=== PATIENT | female | born 1945 | race Caucasian/White ===

== ENCOUNTER → 2020-09-30 13:48 | Outpatient (CLI) | payer OTHER, SELFPAY ==
--- NOTE | ~2020-09-30 | MM_ITS ---
EXAMINATION: MM screening mario BI w betty HISTORY: Screening mammogram TECHNIQUE: Craniocaudal and mediolateral oblique 3-D tomosynthesis images were obtained and synthetic 2-D images were generated. CAD analysis was submitted and interpreted. COMPARISON: 01/31/2013, 08/23/2011 bilateral digital screening mammogram examinations BREAST PARENCHYMAL COMPOSITION: There are scattered areas of fibroglandular density. FINDINGS: There are scattered bilateral microcalcifications. There is no evidence of suspicious mass, calcification, or architectural distortion to suggest malignancy in either breast. There has been no suspicious interval change. IMPRESSION: 1. No mammographic evidence of malignancy. 2. Recommend routine screening mammography in one year. BI-RADS Category 2: Benign finding(s). Reviewed, dictated and finalized at location A.
== END ==
PROVIDERS: PCP Internal Medicine; Visit Provider Internal Medicine
DX: Z12.31 Encounter for screening mammogram for malignant neoplasm of breast (principal)
CPT/HCPCS: 77063; 77067

== ENCOUNTER → 2021-01-14 14:13 | Outpatient (CLI) | payer OTHER, SELFPAY ==
--- NOTE | ~2021-01-14 | XR_ITS ---
XR chest 2V DATE: 01/14/2021 15:01 INDICATION: Chronic obstructive pulmonary disease TECHNIQUE: PA and lateral views COMPARISON: 10/22/2017 AP and lateral chest FINDINGS: Heart size is within normal range. No hilar or mediastinal enlargement. Moderate bilateral pulmonary hyperinflation. No pulmonary infiltrate or consolidation, pleural effusion or pulmonary vascular congestion or pneumo thorax. Diffuse osteopenia. IMPRESSION: Bilateral hyperinflation consistent with clinical history of COPD No active cardiopulmonary disease Reviewed, dictated and finalized at location A.
== END ==
PROVIDERS: PCP Internal Medicine; Visit Provider Nurse Practitioner Family
DX: J44.9 Chronic obstructive pulmonary disease, unspecified (principal); R91.8 Other nonspecific abnormal finding of lung field
CPT/HCPCS: 71046

== ENCOUNTER 2021-04-16 12:44 | Outpatient (CLI) | payer OTHER, SELFPAY ==
--- NOTE | ~2021-04-16 | CT_ITS ---
EXAMINATION: CT lung screening DATE: 04/16/2021 13:12 INDICATION: HISTORY OF CIGARETTES SMOKING TECHNIQUE: Computed tomography (CT) of the chest was performed without intravenous contrast. Addition al 3D reconstructions utilizing coronal maximum intensity projection (MIP) were performed. Automated exposure control and iterative reconstruction technique were employed. The dose-length product was 29 8.24 mGy-cm. COMPARISON: None FINDINGS: There are a few small calcified nodules in the right middle lobe and lingula along with calcified rig ht hilar and mediastinal lymph nodes consistent with old granulomatous disease. No other suspicious p ulmonary nodules, pneumonia, pulmonary edema or pleural effusion. Heart size is normal. Minimal peric ardial effusion. Atherosclerotic coronary artery calcification and aortic valve calcification. Thorac ic aorta is normal in caliber. No pathologically enlarged thoracic lymphadenopathy. Diffuse hepatic s teatosis. A few hepatic and splenic calcific lesions consistent with old granulomatous disease. Moder ate to severe cervical and thoracic spondylosis. IMPRESSION: 1. Lung-RADS category 1: Negative. Continue annual screening with noncontrast low-dose chest CT in 12 months. Reviewed, dictated and finalized at location B. ATIONAL INTELLIGENCE ANALYST IMPRESSION: 1. Lung-RADS category 1: Negative. Continue annual screening with noncontrast l ow-dose chest CT in 12 months.
== END 2021-04-16 12:45 | disposition home or self-care (01) ==
LOC: ANHIMG 12:52
PROVIDERS: PCP Internal Medicine; Visit Provider Internal Medicine
DX: Z87.891 Personal history of nicotine dependence (principal)
CPT/HCPCS: 71271

== ENCOUNTER 2021-05-10 12:25 | Inpatient (IN) | payer OTHER, SELFPAY ==
--- NOTE | ~2021-05-10 | XR_ITS ---
XR chest 1V portable DATE: 05/12/2021 10:16 INDICATION: Chest pressure TECHNIQUE: Portable upright AP chest on May 12, 2021 at 1010 hours COMPARISON: 05/10/2021 portable AP chest at 1432 hours FINDINGS: Normal heart size. There is thoracic aortic calcification and unfolding. No hilar or medias tinal enlargement. Minimal focal infiltrate or atelectasis at the right mid to lower lung. The lungs otherwise appear cl ear. IMPRESSION: Minimal focal infiltrate or atelectasis in the right mid and lower lung; otherwise no act aysha disease Reviewed, dictated and finalized at location B. OR INFORMATION SECURITY ANALYST IMPRESSION: Minimal focal infiltrate or atelectasis in the right mid and lower lung; otherwise no active disease
--- NOTE | ~2021-05-10 | XR_ITS ---
EXAMINATION: XR hip LT min 3V w AP pelvis DATE: 05/10/2021 13:37 INDICATION: Chronic left hip pain. TECHNIQUE: An anteroposterior view of the pelvis and 3 views of left hip were obtained. COMPARISON: Left hip radiographs 08/14/2014 FINDINGS: There is lumbar dextroscoliosis and severe spondylosis. There is a total right hip arthropl asty in near-anatomic alignment. There is advanced left hip osteoarthritis with bone volume loss of f emoral head. IMPRESSION: 1. Worsened advanced left hip osteoarthritis. 2. Total right hip arthroplasty in near-anatomic alignment. Reviewed, dictated and finalized at location A. NCE OFFICER
--- NOTE | ~2021-05-10 | XR_ITS ---
EXAMINATION: XR surgery orthopedic DATE: 05/11/2021 15:56 INDICATION: Intraoperative evaluation during left total hip arthroplasty TECHNIQUE: 2 frontal views of the left hip were obtained. COMPARISON: None. FINDINGS: Intraoperative image during a left total hip arthroplasty demonstrate placement of an acetabular comp onent affixed with at least a single screw which appears in near anatomic alignment on the single jay ge provided. A femoral broach is in place on the initial image with the proximal tip centered over t he acetabular component. Subsequent image demonstrates replacement of the broach with a femoral compo nent. Alignment appears near-anatomic. Partially visualized is a contralateral right total hip arthro plasty. Portions of the pelvis are obscured by a bolster. No fractures in the visualized bones. IMPRESSION: 1. Expected appearance during a left total hip arthroplasty. Reviewed, dictated and finalized at location A. NE PLUMBER
--- NOTE | ~2021-05-10 | XR_ITS ---
XR chest 1V portable DATE: 05/10/2021 14:44 INDICATION: Preoperative evaluation. History of cigarette smoking. TECHNIQUE: Portable upright AP chest on 05/10/2021 at 1432 hours COMPARISON: 04/16/2021 CT lung screening 01/14/2021 2 view chest FINDINGS: Normal heart size. There is aortic calcification and mild unfolding. No hilar or mediastina l enlargement. No pulmonary infiltrate or consolidation, pleural effusion or pulmonary vascular congestion or pneumo thorax is detected. Mild diffuse osteopenia. IMPRESSION: No active cardiopulmonary disease Reviewed, dictated and finalized at location A. AND ALCOHOL TREATMENT SPECIALIST
[2021-05-10 12:34] VITALS: BP 138/98; PULSE 102; RESP 17; TEMP 36.2; O2SAT 98
--- NOTE | 2021-05-10 12:55 | ED.LOWEXIN ---
HPI - Extremity Injury (Lower) General Chief Complaint: Extremity Injury, Lower Stated Complaint: Left hip pain, getting replaced 05/27/21 Time Seen by Provider: 05/10/21 12:40 Source: patient Mode of arrival: ambulatory Limitations: clinical condition History of Present Illness HPI Narrative: Patient 75 years old white female had long history of chronic left hip pain scheduled for surgery by Dr. Palafox next month. Currently patient on anti-inflammatory medication and tramadol, over the last 7 days unable to sleep, unable to walk and take care of her because of the severity pain. Patient denies any recent trauma., Fever, chills, nausea, vomiting. Related Data Home Medications Medication Instructions Recorded Confirmed aspirin 81 mg tablet,delayed 81 mg PO DAILY 03/19/19 01/14/21 release atorvastatin 20 mg tablet 20 mg PO DAILY 03/19/19 01/14/21 cholecalciferol (vitamin D3) 25 1,000 unit PO DAILY 03/19/19 01/14/21 mcg (1,000 unit) capsule cyanocobalamin (vitamin B-12) 500 500 mcg PO DAILY 03/19/19 01/14/21 mcg tablet fluticasone propionate 50 1 spray NASAL DAILY 03/19/19 01/14/21 mcg/actuation nasal spray,suspension furosemide 40 mg tablet 40 mg PO QAM 03/19/19 01/14/21 lorazepam 0.5 mg tablet 0.5 mg PO DAILY PRN 03/19/19 01/14/21 multivitamin 1 tablet PO DAILY 03/19/19 01/14/21 omega-3 fatty acids 1,000 mg 1,000 mg PO DAILY 03/19/19 01/14/21 capsule zolpidem 10 mg tablet PO 03/19/19 01/14/21 brimonidine 0.15 % eye drops 1 drp EACH EYE Q8H 01/14/21 01/14/21 bupropion HCl 300 mg 24 hr tablet, 300 mg PO QAM 01/14/21 01/14/21 extended release diclofenac sodium 75 mg 75 mg PO BID 01/14/21 01/14/21 tablet,delayed release duloxetine 60 mg capsule,delayed 60 mg PO DAILY 01/14/21 01/14/21 release latanoprost 0.005 % eye drops, 1 drp EACH EYE DAILY 01/14/21 01/14/21 emulsion omeprazole 20 mg tablet,delayed 20 mg PO DAILY 01/14/21 01/14/21 release potassium chloride 20 mEq 10 meq PO DAILY tablet 01/14/21 01/14/21 tablet,extended release tramadol 50 mg tablet 50 mg PO Q6H PRN 01/14/21 01/14/21 Allergies Allergy/AdvReac Type Severity Reaction Status Date / Time nitrofurantoin Allergy Unknown unknown Verified 05/10/21 12:45 Penicillins Allergy Unknown unknown Verified 05/10/21 12:45 Review of Systems Review of Systems: CONSTITUTIONAL: Denies fever, chills, or sweats. EYES: Denies visual changes, redness, or discharge. ENT: Denies rhinorrhea, congestion, sore throat, or otalgia. CARDIOVASCULAR: Denies chest pain, palpitations, or edema. RESPIRATORY: Denies cough or dyspnea. GASTROINTESTINAL: Denies abdominal pain, nausea, vomiting, or diarrhea. GENITOURINARY: Denies dysuria or hematuria. SKIN: Denies rash or itching. MUSCULOSKELETAL: Left hip pain NEUROLOGIC: Denies headache, numbness, or weakness. PSYCHIATRIC: Denies anxiety or depression. [facility] Past Medical History Medical History Anxiety CHF (congestive heart failure), NYHA class I Glaucoma History of tobacco abuse Hyperlipidemia Obstructive sleep apnea (adult) (pediatric) Osteoarthritis Surgical History Surgical History History of throat surgery 2012 polyp History of tonsillectomy History of total hip arthroplasty 2016 [facility] Total knee replacement status 2018 [facility] Family History Family History Sibling Family history of multiple sclerosis, Onset Age: 49 Patient's sister is Father Hypertension Family history of transient ischemic attacks, Onset Age: 72 Acute myocardial infarction, Onset Age: 72 Patient's father is Mother Family history of lung cancer, Onset Age: 72 Patient's mother is Social History Social History Social Histor
[2021-05-10] MEDS: HYDROmorphone HCL INJ (*CRX) 1 MG/ML SYR IM (13:15)
[2021-05-10] MEDS: ONDANSETRON HCL ODT 4 MG TABLET PO (13:15)
[2021-05-10] MEDS: diazePAM (*CRX) 5 MG TABLET PO (13:15)
[2021-05-10 14:15] VITALS: BP 148/86; PULSE 98; RESP 16; O2SAT 97
--- NOTE | 2021-05-10 14:18 | ECG_ITS ---
Measurements Intervals [place] Rate: 91 P: 47 IN: 207 QRS: 28 QRSD: 99 T: 65 QT: 319 QTc: 393 Interpretive Statements SINUS RHYTHM WITH FIRST DEGREE AV BLOCK CANNOT RULE OUT SEPTAL INFARCT, AGE INDETERMINATE BASELINE ARTIFACT- I, III, AVL, AVF ABNORMAL ECG Electronically Signed On 05-10-2021 16:25:53 RESEARCH ANIMAL FACILITY SUPERVISOR by Charan Hummel D.O.
--- NOTE | 2021-05-10 14:25 | PM.IMHP ---
H&P: HPI History of Present Illness Date/Time: 05/10/21 14:25 this is a 75 year old female patient who has a history of severe osteoarthritis. The patient has been and severe discomfort to her left hip for at least last 7 days. She is unable to walk and take care of herself and her . The patient was scheduled for surgery next month by Dr. Palafox for that left hip. However she is unable to sleep at night and walk due to the discomfort. The patient has resorted to smoking marijuana to help with her discomfort. She states the marijuana is no longer helping her either. White count is 11.1. Creatinine 1.3. Hip and pelvis x-ray was read as worsened advanced left hip osteoarthritis. Total right hip arthroplasty in near anatomical alignment. Chest x-ray read as no acute cardiopulmonary disease. The patient was given Dilaudid, Valium, Zofran and morphine. Dr. Palafox was notified and the patient will be scheduled for surgery tomorrow. Patient is being admitted to inpatient services on the date of service 05/10/2021. Chief Complaint: Severe left hip pain Review of Systems Review of Systems: All systems reviewed & are unremarkable except as noted in HPI and below Constitutional: Constitutional: Reports as per HPI and Reports no additional constitutional complaints Eyes: Eyes: Reports as per HPI and Reports no additional eye complaints ENT: Reports system reviewed and no additional complaints, except as documented and Reports Normal hearing present Cardiovascular: Cardiovascular: Reports no additional cardiovascular complaints Respiratory: Respiratory: Reports no additional respiratory complaints and Reports no additional respiratory complaints Gastrointestinal: Gastrointestinal: Reports as per HPI and Reports no additional gastrointestinal complaints Musculoskeletal: Musculoskeletal: Reports no additional musculoskeletal complaints Integumentary/Breasts: Skin/Breast: Reports system reviewed and no additional complaints, except as docu and Reports as per HPI Neurologic: Reports system reviewed and no additional complaints, except as documented, Reports as per HPI and Reports Normal hearing present Psychiatric: Psychiatric: Reports no additional psychiatric complaints and Reports as per HPI Endocrine: Endocrine: Reports no additional endocrine complaints Hematologic/Lymphatic: Hematologic/Lymphatic: Reports no additional hematologic/lymphatic complaints Allergic/Immunologic: Allergic/Immunologic: Reports no additional allergic/immunologic complaints [facility] Past Medical History Medical History (Updated 05/10/21 @ 15:24 by Christal Toro NP) Anxiety CHF (congestive heart failure), NYHA class I Glaucoma History of tobacco abuse Hyperlipidemia Obstructive sleep apnea Obstructive sleep apnea (adult) (pediatric) Osteoarthritis Surgical History Surgical History History of throat surgery 2011 polyp History of tonsillectomy History of total hip arthroplasty 2016 [facility] Total knee replacement status 2018 [facility] Family History Family History Sibling Family history of multiple sclerosis, Onset Age: 49 Patient's sister is Father Hypertension Family history of transient ischemic attacks, Onset Age: 72 Acute myocardial infarction, Onset Age: 72 Patient's father is Mother Family history of lung cancer, Onset Age: 72 Patient's mother is Social History Social History (Updated 05/10/21 @ 15:21 by Christal Toro NP) Social History: the patient stated that she stopped smoking in 2014. She lives with her who has Parkinson's. She has One daughter. The daughter and are both poa. She is retired from customer service. She smokes marijuana at night to help her sleep and help with the pain. Occasional glass of wine.
[2021-05-10 14:56] LABS: Basophils Percent Auto 0.2 % (0.2-1.2); Eosinophils Absolute Auto 0.2 K/mm3 (0-0.3); Eosinophils Percent Auto 1.7 % (0-4.4); Hematocrit 38.5 % (37.0-47.0); Hemoglobin 12.6 g/dL (12.0-15.0); Immature Granulocyte Absolute 0.04 K/mm3 (0.00-0.031); Immature Granulocyte Percent A 0.4 % (0-0.5); Lymphocytes Absolute Auto 1.36 K/mm3 (0.9-3.2); Lymphocytes Percent Auto 12.2 % (18.3-44.2); Mean Corpuscular HGB Conc 32.7 g/dl (32-36); Mean Corpuscular Hemoglobin 28.9 pg (26-34); Mean Corpuscular Volume 88.3 fl (80-100); Mean Platelet Volume 8.6 fl (7.4-10.4); Monocytes Absolute Auto 1.1 K/mm3 (0.1-0.6); Monocytes Percent Auto 10.1 % (2.6-8.5); Neutrophils Absolute Auto 8.4 K/mm3 (1.3-6.7); Neutrophils Percent Auto 75.4 % (45.5-73.1); Platelet Count Result 445 k/mm3 (150-375); Red Blood Count 4.36 M/mm3 (4.2-5.4); Red Cell Distribution Width 14.8 % (11.5-14.5); White Blood Count 11.1 K/mm3 (4.5-10.0)
[2021-05-10 15:07] LABS: Alanine Aminotransferase 23 U/L (4-35); Albumin Level 4.3 g/dL (3.5-5.1); Alkaline Phosphatase 105 U/L (38-126); Anion Gap 8 mmol/L (8-16); Aspartate Amino Transferase 30 U/L (14-36); Bilirubin,Total 0.9 mg/dL (0.2-1.3); Blood Urea Nitrogen 28 mg/dL (7-17); Calcium 9.7 mg/dL (8.4-10.2); Carbon Dioxide 24 mmol/L (22-30); Chloride 102 mmol/L (98-107); Estimated CRCL calculation 35 ml/min; Estimated Glomerular Filt Rate 40; Glucose 100 mg/dL (65-110); Potassium 3.9 mmol/L (3.4-5.0); Sodium 134 mmol/L (137-145)
[2021-05-10 15:13] LABS: INR 1.1
[2021-05-10 15:14] LABS: Partial Thromboplastin Time 36.9 SECONDS (22.3-36.8)
[2021-05-10 16:00] LABS: SARS-CoV-2 RNA PCR Negative
[2021-05-10] MEDS: HYDROmorphone HCL INJ (*CRX) 1 MG/ML SYR 0.5 MG IV PUSH ×2 (17:45→21:44)
[2021-05-10 17:47] VITALS: BP 141/76; PULSE 101; RESP 17; O2SAT 98
[2021-05-10 18:12] VITALS: BMI 38.5
--- NOTE | 2021-05-10 18:36 | ADMGEN ---
This patient, Emma Cintron, was admitted to [facility] Surg Room 316-01 at 1800. Patient/family oriented to hospital policies and general routines including ID bracelet, bed and alarms, visiting hours, pain management, procedures, bathroom and other care routines, personal items, smoking policy, room service/diet, and visiting hours. Information on how to activate the Rapid Response Team has been discussed. Patient/Family are encouraged to report perceived risks to care and to ask questions if they do not understand what they are told or what they should do.
[2021-05-10 18:43] VITALS: BP 128/62; PULSE 96; RESP 18; TEMP 36.2; O2SAT 95
[2021-05-10 20:50] VITALS: PULSE 95; RESP 20; O2SAT 97
[2021-05-10 22:00] VITALS: BP 124/56; PULSE 95; RESP 20; TEMP 36.7; O2SAT 97
[2021-05-10] MEDS: LORazepam INJ (*CRX) 2 MG/ML VIAL 0.5 MG IV PUSH (22:20)
[2021-05-10] MEDS: traMADol HCL (*CRX) 50 MG TABLET PO (22:29)
[2021-05-11] VITALS (19 sets, daily range): BP systolic 118–167; BP diastolic 68–98; PULSE 92–110; RESP 16–20; TEMP 36–37.9; O2SAT 90–100
[2021-05-11] MEDS: SODIUM CHLORIDE 0.9% IV 1,000 ML 100 ML IV CONT (05:36)
[2021-05-11] MEDS: HYDROmorphone HCL INJ (*CRX) 1 MG/ML SYR 0.5 MG IV PUSH ×2 (05:39→12:33)
[2021-05-11 07:49] LABS: Basophils Percent Auto 0.5 % (0.2-1.2); Eosinophils Absolute Auto 0.3 K/mm3 (0-0.3); Eosinophils Percent Auto 3.7 % (0-4.4); Hematocrit 37.6 % (37.0-47.0); Hemoglobin 12.1 g/dL (12.0-15.0); Immature Granulocyte Absolute 0.04 K/mm3 (0.00-0.031); Immature Granulocyte Percent A 0.5 % (0-0.5); Lymphocytes Absolute Auto 1.39 K/mm3 (0.9-3.2); Lymphocytes Percent Auto 16.2 % (18.3-44.2); Mean Corpuscular HGB Conc 32.2 g/dl (32-36); Mean Corpuscular Hemoglobin 28.7 pg (26-34); Mean Corpuscular Volume 89.1 fl (80-100); Mean Platelet Volume 8.8 fl (7.4-10.4); Monocytes Absolute Auto 0.9 K/mm3 (0.1-0.6); Monocytes Percent Auto 10.7 % (2.6-8.5); Neutrophils Absolute Auto 5.9 K/mm3 (1.3-6.7); Neutrophils Percent Auto 68.4 % (45.5-73.1); Platelet Count Result 440 k/mm3 (150-375); Red Blood Count 4.22 M/mm3 (4.2-5.4); Red Cell Distribution Width 14.9 % (11.5-14.5); White Blood Count 8.6 K/mm3 (4.5-10.0)
[2021-05-11 08:03] LABS: Alanine Aminotransferase 22 U/L (4-35); Alkaline Phosphatase 101 U/L (38-126); Anion Gap 4 mmol/L (8-16); Aspartate Amino Transferase 30 U/L (14-36); Bilirubin,Total 0.7 mg/dL (0.2-1.3); Blood Urea Nitrogen 24 mg/dL (7-17); Calcium 9.5 mg/dL (8.4-10.2); Carbon Dioxide 29 mmol/L (22-30); Chloride 105 mmol/L (98-107); Estimated CRCL calculation 44 ml/min; Estimated Glomerular Filt Rate 44; Glucose 113 mg/dL (65-110); Lactate Dehydrogenase 431 U/L (313-618); Sodium 138 mmol/L (137-145)
--- NOTE | 2021-05-11 08:29 | PM.IMHP ---
H&P: HPI History of Present Illness Date/Time: 05/11/21 08:29 Patient is a 75-year-old female who presents with a chronic ongoing history of left hip pain. She has had previous right total hip arthroplasty and now has similar symptoms on the left getting much worse with time. 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 She is in quite significant pain unable to ambulate or bear much weight on the left hip. Patient went to the emergency room because of significant pain she was having she was scheduled to have a total hip arthroplasty in a couple of weeks but this has been moved up due to the significant advancement of the collapse of the femoral head in the pain that she has an. She denies any new trauma or injury. No signs or symptoms of infection or other complaints. She comes in for left total hip arthroplasty as described above. Chief Complaint: Left hip pain due to severe primary osteoarthritis left hip joint and AVN with mild collapse of the femoral head. Review of Systems Review of Systems: All systems reviewed & are unremarkable except as noted in HPI and below PMFSH Past Medical History Medical History Acute and chronic respiratory failure Allergic rhinitis Anxiety CHF (congestive heart failure), NYHA class I Chronic obstructive pulmonary disease, unspecified Glaucoma History of tobacco abuse Hyperlipidemia Obesity Obstructive sleep apnea Obstructive sleep apnea (adult) (pediatric) Osteoarthritis Osteoarthritis of left hip Surgical History Surgical History History of throat surgery 2011 polyp History of tonsillectomy [facility] Total knee replacement status 2018 [facility] Family History Family History Sibling Family history of multiple sclerosis, Onset Age: 49 Patient's sister is Father Hypertension Family history of transient ischemic attacks, Onset Age: 72 Acute myocardial infarction, Onset Age: 72 Patient's father is Mother Family history of lung cancer, Onset Age: 72 Patient's mother is Social History Social History Social History: the patient stated that she stopped smoking in 2014. She lives with her who has Parkinson's. She has One daughter. The daughter and are both poa. She is retired from customer service. She smokes marijuana at night to help her sleep and help with the pain. Occasional glass of wine. Code status full code Smoking status: Former smoker Additional smoking assessment comments: pt confirms to smoking marijuana daily Alcohol intake: current Substance use type: marijuana Spiritual care concerns: No Meds Home Medications and Allergies Home Medications Medication Instructions Recorded Confirmed Type aspirin 81 mg tablet,delayed 81 mg PO DAILY 03/19/19 05/10/21 History release atorvastatin 20 mg tablet 20 mg PO DAILY 03/19/19 05/10/21 History cholecalciferol (vitamin D3) 25 1,000 unit PO DAILY 03/19/19 05/10/21 History mcg (1,000 unit) capsule cyanocobalamin (vitamin B-12) 500 500 mcg PO DAILY 03/19/19 05/10/21 History mcg tablet fluticasone propionate 50 1 spray NASAL DAILY 03/19/19 05/10/21 History mcg/actuation nasal spray,suspension furosemide 40 mg tablet 40 mg PO QAM 03/19/19 05/10/21 History lorazepam 0.5 mg tablet 0.5 mg PO DAILY PRN 03/19/19 05/10/21 History multivitamin 1 tablet PO DAILY 03/19/19 05/10/21 History omega-3 fatty acids 1,000 mg 1,000 mg PO DAILY 03/19/19 05/10/21 History capsule zolpidem 10 mg tablet 10 mg PO
[2021-05-11] MEDS: LATANOPROST 0.005% OP SOLN 2.5 ML BTL 1 DROP EACH EYE (09:57)
--- NOTE | 2021-05-11 13:12 | WPDANESEPPF ---
Anes - Initial Pre Proc Eval Procedure: Operation Date: 05/11/21 14:00 Proposed Procedures p Left Total Hip Arthroplasty - Sebastián Palafox MD Date/Time: 05/11/21 13:12 Surgeon: Yris Higginbotham PA-C Pre Op Diagnosis: Advanced L Hip Arthritis, Hip Replacement Patient Data Age: 75 Gender: F Height: 1.65 m Weight: 105.1 kg Last Vital Signs Temp 36.5 C 05/11/21 09:49 Pulse 96 05/11/21 09:49 Resp 20 05/11/21 09:49 BP 122/69 05/11/21 09:49 Pulse Ox 97 05/11/21 09:49 Allergies Allergy/AdvReac Type Severity Reaction Status Date / Time nitrofurantoin Allergy Unknown unknown Verified 05/11/21 13:10 Penicillins Allergy Unknown unknown Verified 05/11/21 13:10 Home Medications Medication Instructions Recorded Confirmed Type aspirin 81 mg tablet,delayed 81 mg PO DAILY 03/19/19 05/10/21 History release atorvastatin 20 mg tablet 20 mg PO DAILY 03/19/19 05/10/21 History cholecalciferol (vitamin D3) 25 1,000 unit PO DAILY 03/19/19 05/10/21 History mcg (1,000 unit) capsule cyanocobalamin (vitamin B-12) 500 500 mcg PO DAILY 03/19/19 05/10/21 History mcg tablet fluticasone propionate 50 1 spray NASAL DAILY 03/19/19 05/10/21 History mcg/actuation nasal spray,suspension furosemide 40 mg tablet 40 mg PO QAM 03/19/19 05/10/21 History lorazepam 0.5 mg tablet 0.5 mg PO DAILY PRN 03/19/19 05/10/21 History multivitamin 1 tablet PO DAILY 03/19/19 05/10/21 History omega-3 fatty acids 1,000 mg 1,000 mg PO DAILY 03/19/19 05/10/21 History capsule zolpidem 10 mg tablet 10 mg PO PRN PRN 03/19/19 05/10/21 History albuterol sulfate 90 mcg/actuation 1 - 2 inh INHALATION Q4-6H PRN 01/14/21 05/10/21 Rx aerosol inhaler #8.5 g brimonidine 0.15 % eye drops 1 drp EACH EYE Q8H 01/14/21 05/10/21 History bupropion HCl 300 mg 24 hr tablet, 300 mg PO QAM 01/14/21 05/10/21 History extended release diclofenac sodium 75 mg 75 mg PO BID 01/14/21 05/10/21 History tablet,delayed release duloxetine 60 mg capsule,delayed 60 mg PO DAILY 01/14/21 05/10/21 History release latanoprost 0.005 % eye drops, 1 drp EACH EYE DAILY 01/14/21 05/10/21 History emulsion omeprazole 20 mg tablet,delayed 20 mg PO DAILY 01/14/21 05/10/21 History release potassium chloride 20 mEq 10 meq PO DAILY tablet 01/14/21 05/10/21 History tablet,extended release tramadol 50 mg tablet 50 mg PO Q6H PRN 01/14/21 05/10/21 History Laboratory Tests 05/10/21 05/10/21 05/10/21 14:49 14:49 14:49 WBC 11.1 K/mm3 H K/mm3 (4.5-10.0) RBC 4.36 M/mm3 M/mm3 (4.2-5.4) Hgb 12.6 g/dL g/dL (12.0-15.0) Hct 38.5 % % (37.0-47.0) MCV 88.3 fl fl (80-100) MCH 28.9 pg pg (26-34) MCHC 32.7 g/dl g/dl (32-36) RDW 14.8 % H % (11.5-14.5) Plt Count 445 k/mm3 H k/mm3 (150-375) MPV 8.6 fl fl (7.4-10.4) Immature Gran % (Auto) 0.4 % % (0-0.5) Neut % (Auto) 75.4 % H % (45.5-73.1) Lymph % (Auto) 12.2 % L % (18.3-44.2) Summers % (Auto) 10.1 % H % (2.6-8.5) Eos % (Auto) 1.7 % % (0-4.4) Baso % (Auto) 0.2 % % (0.2-1.2) Lymph # (Auto) 1.36 K/mm3 K/mm3 (0.9-3.2) Summers # (Auto) 1.1 K/mm3 H K/mm3 (0.1-0.6) Eos # (Auto) 0.2 K/mm3 K/mm3 (0-0.3) Baso # (Auto) 0.0 K/mm3 K/mm3 (0.0-0.1) Abs Immat Gran (auto) 0.04 K/mm3 H K/mm3 (0.00-0.031) Absolute Neuts (auto) 8.4 K/mm3 H K/mm3 (1.3-6.7) Absolute Nucleated RBC 0.0 K/mm3 K/mm3 (0.0-0.012) Nucleated RBC % 0.0 % % (0.0-0.2) PT 14.0 Seconds Seconds (11.1-14.7) INR 1.1 APTT 36.9 SECONDS H SECONDS (22.3-36.8) Sodium 134 mmol/L L mmol/L (137-145) Potassium 3.9 mmol/L mmol/L (3.4-5.0) Chloride 102 mmol/L mmol/L (98-107) Carbon Dioxide 24 mmol/L mmol/L (22-30)
[2021-05-11] MEDS: LACTATED RINGERS 1,000 ML 30 ML IV CONT ×2 (13:27→16:28)
--- NOTE | 2021-05-11 14:04 | WPDHPUPDATE1 ---
History and Physical Update Update Date/Time: 05/11/21 14:04 History and Physical has been reviewed, including an updated exam of the patient. There are NO changes in the patient's condition. Risks, benefits, and alternatives have been discussed and questions answered. Patient agrees to proceed with procedure.
[2021-05-11] MEDS: HYDROmorphone HCL INJ (*CRX) 1 MG/ML SYR IV PUSH (14:11)
[2021-05-11] MEDS: TRANEXAMIC ACID 1,000MG/ISO100 1,000 MG/100 ML BAG 200 MG IVPB (14:12)
[2021-05-11] MEDS: ceFAZolin 2 GM/D5W 50 ML 2 GM/50 ML BAG IVPB (14:27)
--- NOTE | 2021-05-11 15:04 | PM.IMPN ---
Progress Note: A&P Assessment and Plan (1) Osteoarthritis of left hip: Qualifiers: Osteoarthritis type: unspecified Qualified Code(s): M16.12 - Unilateral primary osteoarthritis, left hip Code(s): M16.12 - Unilateral primary osteoarthritis, left hip Status: Acute Assessment and Plan: Presented with worsening left hip pain Hip x-ray shows worsened advanced left hip osteoarthritis. 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 Analgesics available as needed She will need PT/OT postoperatively Weight-bearing and DVT prophylaxis per Orthopedic surgery (2) Chronic obstructive pulmonary disease, unspecified: Qualifiers: COPD type: unspecified COPD Qualified Code(s): J44.9 - Chronic obstructive pulmonary disease, unspecified Code(s): J44.9 - Chronic obstructive pulmonary disease, unspecified Status: Acute Assessment and Plan: Not in acute exacerbation Continue home inhalers (3) CHF (congestive heart failure), NYHA class I: Code(s): I50.9 - Heart failure, unspecified Status: Chronic Assessment and Plan: Clinically compensated at this time Last echocardiogram showed grade 1 diastolic dysfunction with EF 60% Monitor volume status Continue furosemide 40 mg daily (4) Anxiety: Code(s): F41.9 - Anxiety disorder, unspecified Status: Chronic Assessment and Plan: No acute issues at this time Continue duloxetine and bupropion (5) Obstructive sleep apnea: Code(s): G47.33 - Obstructive sleep apnea (adult) (pediatric) Status: Chronic Assessment and Plan: Continue CPAP titrated to home settings (6) Acute kidney injury: Code(s): N17.9 - Acute kidney failure, unspecified Status: Acute Assessment and Plan: Creatinine elevated at 1.3 on presentation No prior labs to establish baseline Creatinine down to 1.2 today She has been rehydrated with IV fluids Continue to monitor renal function Consider renal ultrasound if no improvement Subjective Date/time seen: 05/11/21 15:04 Interval history: Date of service: 05/11/2021 Emma Cintron is a 75-year-old female with a history of CHF, COPD, JASON, and severe osteoarthritis of left hip who is seen in follow-up for left hip pain. She was scheduled to undergo elective hip replacement on 05/25/2021 but her pain became much more severe and she went to the emergency department due to code controlled left hip pain. She is now scheduled for left hip replacement this afternoon. At this time, she rates her lips hip pain is 8/10. She states the pain starts in her left hip and she feels in her knee, her ankle, and heel of her foot. She also complains of dry mouth she has been NPO. Reports about of diarrhea on Tuesday night after taking laxatives. No bowel movements since then. No urinary symptoms. Denies abdominal pain, nausea, or vomiting. No shortness of breath, cough, or chest pain. She cannot find a comfortable spot to lay in bed. Review of Systems Review of Systems: All systems reviewed & are unremarkable except as noted in HPI and below Exam Narrative: Ms. Cintron is an obese, well-appearing 75-year-old female who is lying supine in bed. She appears comfortable and is in NARD. Neuro: awake, alert and oriented x4, speech clear, no focal neuro deficits noted HEENMT: normocephalic, atraumatic, EOMI, sclerae anicteric Neck: supple, no lymphadenopathy Respiratory: clear to auscultation bilaterally, nonlabored breathing Cardio: regular rate, regular rhythm with S1-S2 Abdomen: nondistended, normoactive bowel sounds, soft, nontender to palpation Extremities: no edema or erythema, left hip tender to palpation, DP pulses 2+ bilaterally, able to wiggle toes bilaterally Skin:
--- NOTE | 2021-05-11 15:48 | P.OP_ITS ---
Procedure Note - Detailed Date of Procedure 05/11/21 Pre-op Diagnosis Advanced L Hip Arthritis, Hip Replacement Post-op Diagnosis same Procedure Performed [Left] total hip arthroplasty Surgeon Sebastián Palafox MD Manager Training Khoi Verdugo Anesthesia general Description of Procedure Patient was brought to the operating room and anesthetic was administered. The patient was placed with the [side] up and steriley prepped and draped in the usual manner. Longitudinal incision was done, dissection carried down to the fascia. A Hardinge type approach was used and the femoral head was dislocated anteriorly. Femoral head was removed a finger breath above the lesser trochanter. The acetabulum was serially reamed to accept a [52] component. This was impacted into place and secured with 2 25mm screws. A high wall liner was placed. The femur was reamed and broached to accept a [9] component which was impacted into place. A plus [-3] ball and neck were placed and the hip was put through full range of motion. The hip was noted to be stable. The wounds were then closed in a layer fashion using #5 ethibond, 2 vicryl, 2-0 vicryl and donta. Patient left the operating room in satisfactory condition. Estimated Blood Loss 600 Urine Output 0 Drains No Packing No Pathology none sent Complications No immediate complications Condition stable Disposition PACU
[2021-05-11] MEDS: fentaNYL CITRATE INJ (*CRX) 100 MCG/2 ML VIAL 25 MCG IV PUSH ×2 (17:13→17:24)
[2021-05-11 17:17] LABS: Hematocrit 37.8 % (37.0-47.0)
[2021-05-11] MEDS: DICLOFENAC SOD 75 MG TABLET.EC PO (18:22)
[2021-05-11] MEDS: SENNA/DOCUSATE SODIUM TABLET 2 TAB PO (18:22)
[2021-05-11] MEDS: BRIMONIDINE TARTRATE 0.15% 5 ML OPHTH SOLN 1 DROP EACH EYE (21:22)
[2021-05-11] MEDS: HYDROcodone/acetaminophen (*CRX) 7.5-325 MG TABLET 2 TAB PO (21:23)
[2021-05-12] VITALS (10 sets, daily range): BP systolic 123–140; BP diastolic 66–86; PULSE 86–102; RESP 16–22; TEMP 36.8–37.5; O2SAT 92–96
[2021-05-12] MEDS: BRIMONIDINE TARTRATE 0.15% 5 ML OPHTH SOLN 1 DROP EACH EYE ×3 (05:36→21:48)
[2021-05-12 06:59] LABS: Basophils Percent Auto 0.1 % (0.2-1.2); Hematocrit 37.1 % (37.0-47.0); Hemoglobin 11.4 g/dL (12.0-15.0); Immature Granulocyte Absolute 0.09 K/mm3 (0.00-0.031); Immature Granulocyte Percent A 0.6 % (0-0.5); Lymphocytes Absolute Auto 0.82 K/mm3 (0.9-3.2); Lymphocytes Percent Auto 5.3 % (18.3-44.2); Mean Corpuscular HGB Conc 30.7 g/dl (32-36); Mean Corpuscular Hemoglobin 29.5 pg (26-34); Mean Corpuscular Volume 96.1 fl (80-100); Mean Platelet Volume 9.1 fl (7.4-10.4); Monocytes Absolute Auto 0.7 K/mm3 (0.1-0.6); Monocytes Percent Auto 4.8 % (2.6-8.5); Neutrophils Absolute Auto 13.9 K/mm3 (1.3-6.7); Neutrophils Percent Auto 89.2 % (45.5-73.1); Platelet Count Result 437 k/mm3 (150-375); Red Blood Count 3.86 M/mm3 (4.2-5.4); White Blood Count 15.6 K/mm3 (4.5-10.0)
[2021-05-12 07:03] LABS: Anion Gap 4 mmol/L (8-16); Blood Urea Nitrogen 16 mg/dL (7-17); Carbon Dioxide 27 mmol/L (22-30); Chloride 103 mmol/L (98-107); Estimated CRCL calculation 52 ml/min; Estimated Glomerular Filt Rate 54; Glucose 158 mg/dL (65-110); Potassium 4.3 mmol/L (3.4-5.0); Sodium 134 mmol/L (137-145)
[2021-05-12] MEDS: DICLOFENAC SOD 75 MG TABLET.EC PO ×2 (08:51→16:58)
[2021-05-12] MEDS: ATORVASTATIN 20 MG TABLET PO (08:51)
[2021-05-12] MEDS: buPROPion HCL XL (24 HR) 150 MG TABCR 300 MG PO (08:51)
[2021-05-12] MEDS: ASPIRIN 81 MG ENTERIC TABLET PO (08:51)
[2021-05-12] MEDS: polyethylene glycoL 3350 17 GM POWD.PACK PO (08:52)
[2021-05-12] MEDS: DULoxetine HCL 60 MG CAPSULE.DR PO (08:52)
[2021-05-12] MEDS: POTASSIUM CHLORIDE 10 MEQ TABLET PO (08:52)
[2021-05-12] MEDS: FUROSEMIDE 40 MG TABLET PO (08:52)
[2021-05-12] MEDS: SENNA/DOCUSATE SODIUM TABLET 2 TAB PO ×2 (08:52→16:58)
[2021-05-12] MEDS: FLUTICASONE PROPIONATE 0.05% NA SPR 16 GM BTL (*BKC) 1 SPRAY NASAL (08:52)
[2021-05-12] MEDS: LATANOPROST 0.005% OP SOLN 2.5 ML BTL 1 DROP EACH EYE (08:53)
--- NOTE | 2021-05-12 09:50 | ECG_ITS ---
Measurements Intervals [place] Rate: 102 P: 25 ND: 185 QRS: 34 QRSD: 103 T: 63 QT: 316 QTc: 412 Interpretive Statements SINUS TACHYCARDIA BASELINE ARTIFACT- I, II, III, AVR, AVL, AVF, V1-V6 BORDERLINE ECG Electronically Signed On 05-12-2021 10:15:10 [employer]INE [employer] by Charan Hummel D.O.
[2021-05-12] MEDS: HYDROcodone/acetaminophen (*CRX) 7.5-325 MG TABLET 2 TAB PO (10:26)
--- NOTE | 2021-05-12 11:27 | PM.PNORT ---
Progress Note: A&P Additional Plan Will continue to monitor the patient postoperatively. Patient had some chest discomfort and shortness of breath when she got up to the chair earlier today test results pending to rule out cardiac issue. Otherwise looks good from orthopedic standpoint will work on pain control issues and encouraged patient to be up in physical therapy as tolerated. Orthopedics will follow. Anticipate discharge 1-2 days. Time Spent With Patient Time with patient: less than 15 minutes Subjective Subjective Date/Time Seen: 05/12/21 11:27 Patient is stable postop day 1 status post left total hip arthroplasty. Having some pain control issues going very slowly in physical therapy will need to stay another night. Had some chest discomfort when she got up into the chair earlier today. Cardiac enzymes are pending chest x-ray and EKG results are also pending. Patient appears comfortable now. No other complaints. Review of Systems Review of Systems: All systems reviewed & are unremarkable except as noted in HPI and below Exam Narrative: Vital signs are stable patient is afebrile neurovascular she is intact wound is clean and dry calves are benign. Going slowly in physical therapy due to pain postoperative in nature. Objective Data Vital Signs Vital Signs: Vital Signs - 24 hr 05/11/21 13:50 05/11/21 16:28 05/11/21 16:40 Temperature 36.7 C 36.0 C L Pulse Rate 92 97 99 Respiratory Rate 16 18 16 Blood Pressure 134/79 167/78 H 158/79 H Pulse Oximetry 94 95 96 05/11/21 16:55 05/11/21 17:10 05/11/21 17:18 Temperature Pulse Rate 102 H 107 H Respiratory Rate 16 18 Blood Pressure 154/81 H 143/86 H Pulse Oximetry 98 95 96 05/11/21 17:25 05/11/21 17:40 05/11/21 18:00 Temperature 36.2 C L Pulse Rate 106 H 109 H 110 H Respiratory Rate 16 16 16 Blood Pressure 157/94 H 150/84 H 143/80 H Pulse Oximetry 95 94 93 05/11/21 18:04 05/11/21 18:34 05/11/21 18:59 Temperature 36.9 C 36.1 C L Pulse Rate 108 H 103 H Respiratory Rate 16 16 Blood Pressure 118/68 138/77 Pulse Oximetry 90 90 90 05/11/21 19:34 05/11/21 20:00 05/11/21 23:34 Temperature 37.9 C H 37.2 C Pulse Rate 102 H 100 93 Respiratory Rate 16 16 16 Blood Pressure 143/98 H 121/69 Pulse Oximetry 100 93 94 05/12/21 00:47 05/12/21 02:55 05/12/21 03:34 Temperature 37.5 C Pulse Rate 100 Respiratory Rate 20 22 H 16 Blood Pressure 140/69 Pulse Oximetry 93 05/12/21 07:34 Temperature 37.2 C Pulse Rate 86 Respiratory Rate 18 Blood Pressure 140/86 Pulse Oximetry 96 Intake/Output Intake/Output: Intake & Output 05/09/21 05/10/21 05/11/21 05/12/21 23:59 23:59 23:59 23:59 Intake Total 1550 990 Output Total 1310 850 Balance 240 140 Meds/Results Medications: Active Medications Generic Name Dose Route Start Last Admin Trade Name Freq PRN Reason Stop Dose Admin Hydrocodone Bitart/Acetaminophen 1 tab 05/11/21 17:49 Hydrocodone/Acetaminophen (*Crx) 5-325 Mg Tablet PO Q3H PRN Pain Rated 4-6 Hydrocodone Bitart/Acetaminophen 2 tab 05/11/21 17:49 05/12/21 10:26 Hydrocodone/Acetaminophen (*Crx) 7.5-325 Mg Tablet PO 2 tab Q6H PRN Administration Pain Rated 7-10 Albuterol 1 - 2 puff 05/11/21 17:49 Albuterol Sulfate (*Sp) Aerosol 1 Puff INHALATION Q4-6H PRN shortness of breath or wheezing Aspirin 81 mg 05/11/21 09:00 05/12/21 08:51 Aspirin 81 Mg Enteric Tablet PO 81 mg DAILY BRANNON Administration Atorvastatin Calcium 20 mg 05/11/21 09:00 05/12/21 08:51 Atorvastatin 20 Mg Tablet PO 20 mg DAILY BRANNON Administration Brimonidine Tartrate 1 drop 05/10/21 22:05 05/12/21 05:36 Brimonidine Tartrate 0.15% 5 Ml Ophth Soln EACH EYE 1 drop Q8HR BRANNON Administration Bupropion HCl 300 mg 05/11/21 09:00 05/12/21 08:51 Bupropion Hcl Xl (24 Hr) 150 Mg Tabcr PO 300 mg QAM BRANNON Administration Celecoxib 200 mg 05/12/21 09:00 Celecoxib 20
[2021-05-12 11:28] LABS: Troponin I 0.014 ng/mL (0.000-0.034)
[2021-05-12] MEDS: LORazepam (*CRX) 0.5 MG TABLET PO ×2 (12:27→21:48)
[2021-05-12] MEDS: HYDROcodone/acetaminophen (*CRX) 5-325 MG TABLET 1 TAB PO (15:08)
--- NOTE | 2021-05-12 16:43 | P.PNIM_ITS ---
Progress Note: A&P Assessment and Plan (1) Osteoarthritis of left hip: Qualifiers: Osteoarthritis type: unspecified Qualified Code(s): M16.12 - Unilateral primary osteoarthritis, left hip Code(s): M16.12 - Unilateral primary osteoarthritis, left hip Status: Acute Assessment and Plan: Presented with worsening left hip pain * Hip x-ray shows worsened advanced left hip osteoarthritis. 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 Analgesics available as needed * Continue PT/OT * Weight-bearing and DVT prophylaxis per Orthopedic surgery (2) Chronic obstructive pulmonary disease, unspecified: Qualifiers: COPD type: unspecified COPD Qualified Code(s): J44.9 - Chronic obstructive pulmonary disease, unspecified Code(s): J44.9 - Chronic obstructive pulmonary disease, unspecified Status: Acute Assessment and Plan: Not in acute exacerbation * Continue home inhalers (3) CHF (congestive heart failure), NYHA class I: Code(s): I50.9 - Heart failure, unspecified Status: Chronic Assessment and Plan: Clinically compensated at this time * Last echocardiogram showed grade 1 diastolic dysfunction with EF 60% * Monitor volume status * Continue furosemide 40 mg daily (4) Anxiety: Code(s): F41.9 - Anxiety disorder, unspecified Status: Chronic Assessment and Plan: She is feeling more anxious * Continue duloxetine and bupropion * Lorazepam 0.5 mg q.6 hours p.r.n. (5) Obstructive sleep apnea: Code(s): G47.33 - Obstructive sleep apnea (adult) (pediatric) Status: Chronic Assessment and Plan: Patient refuses CPAP again tonight, stating it made her feel to dry * Reports that she has gone nights without her CPAP with no issues * She will resume CPAP on discharge home (6) Acute kidney injury: Code(s): N17.9 - Acute kidney failure, unspecified Status: Acute Assessment and Plan: Creatinine elevated at 1.3 on presentation * No prior labs to establish baseline * Creatinine normalized today at 1.0 * She was rehydrated with IV fluids * Continue to monitor renal function (7) Chest tightness: Code(s): R07.89 - Other chest pain Status: Acute Assessment and Plan: Endorsed episode of chest tightness this morning. See subjective for further details * Resolved * [place] to be due to acute anxiety * Initial troponin negative. Repeat troponin pending * EKG reviewed without ischemic changes * CXR with minimal atelectasis, otherwise no acute findings. Continue incentive spirometry * Ativan prn as above Subjective Date/time seen: 05/12/21 16:43 Interval history: Date of service: 05/12/2021 Emma Cintron is a 75-year-old female with a history of CHF, COPD, JASON, and severe osteoarthritis of left hip who is seen in follow-up for left hip pain. She is now s/p left total hip arthroplasty on 05/11/2021. She is doing okay today. This morning she complained of some chest tightness. She did not have associated arm pain, jaw pain, nausea, vomiting, diaphoresis. No palpitations. She felt that this may be related to anxiety and admits to feeling very anxious. She reports that she has been feeling hot and has been putting a cool rag on her forehead. She states that her hip pain is currently a 4/10. She does not want to wear her CPAP again
--- NOTE | 2021-05-12 16:43 | PM.IMPN ---
Progress Note: A&P Assessment and Plan (1) Osteoarthritis of left hip: Qualifiers: Osteoarthritis type: unspecified Qualified Code(s): M16.12 - Unilateral primary osteoarthritis, left hip Code(s): M16.12 - Unilateral primary osteoarthritis, left hip Status: Acute Assessment and Plan: Presented with worsening left hip pain Hip x-ray shows worsened advanced left hip osteoarthritis. 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 Analgesics available as needed Continue PT/OT Weight-bearing and DVT prophylaxis per Orthopedic surgery (2) Chronic obstructive pulmonary disease, unspecified: Qualifiers: COPD type: unspecified COPD Qualified Code(s): J44.9 - Chronic obstructive pulmonary disease, unspecified Code(s): J44.9 - Chronic obstructive pulmonary disease, unspecified Status: Acute Assessment and Plan: Not in acute exacerbation Continue home inhalers (3) CHF (congestive heart failure), NYHA class I: Code(s): I50.9 - Heart failure, unspecified Status: Chronic Assessment and Plan: Clinically compensated at this time Last echocardiogram showed grade 1 diastolic dysfunction with EF 60% Monitor volume status Continue furosemide 40 mg daily (4) Anxiety: Code(s): F41.9 - Anxiety disorder, unspecified Status: Chronic Assessment and Plan: She is feeling more anxious Continue duloxetine and bupropion Lorazepam 0.5 mg q.6 hours p.r.n. (5) Obstructive sleep apnea: Code(s): G47.33 - Obstructive sleep apnea (adult) (pediatric) Status: Chronic Assessment and Plan: Patient refuses CPAP again tonight, stating it made her feel to dry Reports that she has gone nights without her CPAP with no issues She will resume CPAP on discharge home (6) Acute kidney injury: Code(s): N17.9 - Acute kidney failure, unspecified Status: Acute Assessment and Plan: Creatinine elevated at 1.3 on presentation No prior labs to establish baseline Creatinine normalized today at 1.0 She was rehydrated with IV fluids Continue to monitor renal function (7) Chest tightness: Code(s): R07.89 - Other chest pain Status: Acute Assessment and Plan: Endorsed episode of chest tightness this morning. See subjective for further details Resolved [place] to be due to acute anxiety Initial troponin negative. Repeat troponin pending EKG reviewed without ischemic changes CXR with minimal atelectasis, otherwise no acute findings. Continue incentive spirometry Ativan prn as above Subjective Date/time seen: 05/12/21 16:43 Interval history: Date of service: 05/12/2021 Emma Cintron is a 75-year-old female with a history of CHF, COPD, JASON, and severe osteoarthritis of left hip who is seen in follow-up for left hip pain. She is now s/p left total hip arthroplasty on 05/11/2021. She is doing okay today. This morning she complained of some chest tightness. She did not have associated arm pain, jaw pain, nausea, vomiting, diaphoresis. No palpitations. She felt that this may be related to anxiety and admits to feeling very anxious. She reports that she has been feeling hot and has been putting a cool rag on her forehead. She states that her hip pain is currently a 4/10. She does not want to wear her CPAP again because she does not like the one that is here. She stated it dried her out and her throat is very dry today. She would like to get some rest. No issues with her [place] catheter. Discussed that this will be discontinued and she can transfer to the bedside commode. Review of Systems Review of Systems: All systems reviewed & are unremarkable except as noted in HPI and below Exam Narrative: Ms. Cintron is an obese, w
[2021-05-12 18:26] LABS: Troponin I < 0.012 ng/mL (0.000-0.034)
[2021-05-13 06:30] LABS: Hematocrit 31.9 % (37.0-47.0); Hemoglobin 10.4 g/dL (12.0-15.0); Mean Corpuscular HGB Conc 32.6 g/dl (32-36); Mean Corpuscular Hemoglobin 28.9 pg (26-34); Mean Corpuscular Volume 88.6 fl (80-100); Mean Platelet Volume 8.8 fl (7.4-10.4); Platelet Count Result 406 k/mm3 (150-375); Red Cell Distribution Width 14.9 % (11.5-14.5); White Blood Count 11.9 K/mm3 (4.5-10.0)
[2021-05-13 06:41] LABS: Anion Gap 4 mmol/L (8-16); Blood Urea Nitrogen 21 mg/dL (7-17); Calcium 9.1 mg/dL (8.4-10.2); Carbon Dioxide 28 mmol/L (22-30); Chloride 104 mmol/L (98-107); Estimated CRCL calculation 47 ml/min; Estimated Glomerular Filt Rate 48; Glucose 105 mg/dL (65-110); Sodium 136 mmol/L (137-145)
[2021-05-13] MEDS: BRIMONIDINE TARTRATE 0.15% 5 ML OPHTH SOLN 1 DROP EACH EYE ×2 (06:43→14:31)
[2021-05-13 07:03] LABS: Hemoglobin A1C 5.7 % (<5.7)
[2021-05-13 08:00] VITALS: O2SAT 95
[2021-05-13] MEDS: ATORVASTATIN 20 MG TABLET PO (09:27)
[2021-05-13] MEDS: HYDROcodone/acetaminophen (*CRX) 5-325 MG TABLET 1 TAB PO (09:27)
[2021-05-13] MEDS: buPROPion HCL XL (24 HR) 150 MG TABCR 300 MG PO (09:28)
[2021-05-13] MEDS: SENNA/DOCUSATE SODIUM TABLET 2 TAB PO (09:28)
[2021-05-13] MEDS: POTASSIUM CHLORIDE 10 MEQ TABLET PO (09:28)
[2021-05-13] MEDS: FUROSEMIDE 40 MG TABLET PO (09:28)
[2021-05-13] MEDS: DULoxetine HCL 60 MG CAPSULE.DR PO (09:28)
[2021-05-13] MEDS: ASPIRIN 81 MG ENTERIC TABLET PO (09:28)
[2021-05-13] MEDS: DICLOFENAC SOD 75 MG TABLET.EC PO (09:28)
[2021-05-13] MEDS: LATANOPROST 0.005% OP SOLN 2.5 ML BTL 1 DROP EACH EYE (09:29)
--- NOTE | 2021-05-13 11:46 | PM.PNORT ---
Progress Note: A&P Additional Plan Home today, see DC orders, pt agrees with plan and will call office for any problems. FU [address] Palafox Subjective Subjective Date/Time Seen: 05/13/21 11:46 Pt better today with pain, veronica PT better and stable, ready for DC home Review of Systems Review of Systems: All systems reviewed & are unremarkable except as noted in HPI and below Exam Narrative: VSS afebrile NV intact wound clean and dry calves benign Objective Data Vital Signs Vital Signs: Vital Signs - 24 hr 05/12/21 14:00 05/12/21 16:00 05/12/21 20:10 Temperature 37.3 C 37.2 C Pulse Rate 99 95 102 H Respiratory Rate 16 16 16 Blood Pressure 123/66 126/70 Pulse Oximetry 95 96 95 05/12/21 23:45 05/12/21 23:55 05/13/21 08:00 Temperature 36.8 C Pulse Rate 102 H Respiratory Rate 16 18 Blood Pressure 132/72 Pulse Oximetry 95 95 95 Intake/Output Intake/Output: Intake & Output 05/10/21 05/11/21 05/12/21 05/13/21 23:59 23:59 23:59 23:59 Intake Total 1550 2570 870 Output Total 1310 1750 1500 Balance 240 820 -630 Meds/Results Medications: Active Medications Generic Name Dose Route Start Last Admin Trade Name Freq PRN Reason Stop Dose Admin Hydrocodone Bitart/Acetaminophen 1 tab 05/11/21 17:49 05/13/21 09:27 Hydrocodone/Acetaminophen (*Crx) 5-325 Mg Tablet PO 1 tab Q3H PRN Administration Pain Rated 4-6 Hydrocodone Bitart/Acetaminophen 2 tab 05/11/21 17:49 05/12/21 10:26 Hydrocodone/Acetaminophen (*Crx) 7.5-325 Mg Tablet PO 2 tab Q6H PRN Administration Pain Rated 7-10 Albuterol 1 - 2 puff 05/11/21 17:49 Albuterol Sulfate (*Sp) Aerosol 1 Puff INHALATION Q4-6H PRN shortness of breath or wheezing Aspirin 81 mg 05/11/21 09:00 05/13/21 09:28 Aspirin 81 Mg Enteric Tablet PO 81 mg DAILY BRANNON Administration Atorvastatin Calcium 20 mg 05/11/21 09:00 05/13/21 09:27 Atorvastatin 20 Mg Tablet PO 20 mg DAILY BRANNON Administration Brimonidine Tartrate 1 drop 05/10/21 22:05 05/13/21 06:43 Brimonidine Tartrate 0.15% 5 Ml Ophth Soln EACH EYE 1 drop Q8HR BRANNON Administration Bupropion HCl 300 mg 05/11/21 09:00 05/13/21 09:28 Bupropion Hcl Xl (24 Hr) 150 Mg Tabcr PO 300 mg QAM BRANNON Administration Celecoxib 200 mg 05/12/21 09:00 Celecoxib 200 Mg Capsule PO DAILY BRANNON Diclofenac Sodium 75 mg 05/11/21 17:49 05/13/21 09:28 Diclofenac Sod 75 Mg Tablet.Ec PO 75 mg BID BRANNON Administration Duloxetine HCl 60 mg 05/11/21 09:00 05/13/21 09:28 Duloxetine Hcl 60 Mg Capsule.Dr PO 60 mg DAILY BRANNON Administration Fluticasone Propionate 1 spray 05/11/21 09:00 05/13/21 09:25 Fluticasone Propionate 0.05% Na Spr 16 Gm Btl (*Bkc) NASAL Not Given DAILY COUNT INCLUDES THE [facility] Furosemide 40 mg 05/11/21 09:00 05/13/21 09:28 Furosemide 40 Mg Tablet PO 40 mg QAM BRANNON Administration Latanoprost 1 drop 05/11/21 09:00 05/13/21 09:29 Latanoprost 0.005% Op Soln 2.5 Ml Btl EACH EYE 1 drop DAILY BRANNON Administration Lorazepam 0.5 mg 05/12/21 16:57 05/12/21 21:48 Lorazepam (*Crx) 0.5 Mg Tablet PO 0.5 mg Q6H PRN Administration Anxiety Miscellaneous Information 1 each 05/11/21 00:01 Pt Is On Voltaren At Home; Celebrex Has Been Ordered. D/C Celebrex Or Voltaren? XX 06/10/21 00:00 CLARIFY COUNT INCLUDES THE [facility] Morphine Sulfate 3 mg 05/11/21 17:49 Morphine Sulfate (*Crx) 4 Mg/Ml Inj IV PUSH Q3H PRN BREAKTHROUGH PAIN Naloxone HCl 0.1 mg 05/11/21 17:49 Naloxone Hcl 0.4 Mg/Ml Vial IV PUSH Q2M PRN Opiate Reversal Ondansetron HCl 4 mg 05/11/21 17:49 Ondansetron Inj 4 Mg/2 Ml Vial IV PUSH Q4H PRN Nausea And Vomiting Polyethylene Glycol 17 gm 05/12/21 09:00 05/13/21 09:27 Polyethylene Glycol 3350 17 Gm Powd.Pack PO Not Given QAM COUNT INCLUDES THE [facility] Potassium Chloride 10 meq 05/11/21 09:00 05/13/21 09:28 Potassium Chloride 10 Meq Tablet PO 10 meq
--- NOTE | 2021-05-13 11:59 | PM.DS ---
DS: Admitting Diagnosis Discharge Date 05/13/2021 Admitting Diagnosis AVN and severe primary OA L hip DC dx- same, with S/p L LILLIE DS: Summary Hospital Course Hospital Course: Pt admitted thru ER on May 10 with severe L hip pain due to AVN and femoral head collapse, the following day underwent L LILLIE and was stable, slow in PT due to pain and anxiety. SOB and chest tightness was ruled out for cardiac source, pt stable POD #2, ready for DC home Time Spent with Patient Time attestation: Total time spent providing and/or coordinating discharge services: Exam Narrative: Pt stable in NAD, VSS afebrile NV intact wound clean and dry calves benign, pain well controlled, up in PT doing well with ambulation DS: Data Data Completed and Pending Labs on day of discharge: Labs from last 24 hours 05/13/21 05/13/21 05/13/21 06:10 06:10 06:10 WBC 11.9 H RBC 3.60 L Hgb 10.4 L Hct 31.9 L MCV 88.6 D MCH 28.9 MCHC 32.6 RDW 14.9 H Plt Count 406 H MPV 8.8 Sodium 136 L Potassium 4.0 Chloride 104 Carbon Dioxide 28 Anion Gap 4 L BUN 21 H Creatinine 1.10 H Estim Creat Clear Calc 47 Estimated GFR 48 L Glucose 105 Hemoglobin A1c 5.7 Calcium 9.1 Troponin I 05/12/21 17:20 WBC RBC Hgb Hct MCV MCH MCHC RDW Plt Count MPV Sodium Potassium Chloride Carbon Dioxide Anion Gap BUN Creatinine Estim Creat Clear Calc Estimated GFR Glucose Hemoglobin A1c Calcium Troponin I < 0.012 Discharge Plan Discharge Attending physician on discharge: Sebastián Palafox Consulting providers: Sebastián Palafox ; Kieran Bonds Discharging Clinician: Khoi Verdugo Anticipated Discharge Date/Time: 05/13/21 13:00 Patient Disposition: Home, Self-Care Activity: no shower and follow weight bearing status Diet: as tolerated Wound Care Instructions: keep dressing dry and change dressing daily Discharge Instructions: follow hip precautions, toe touch wt bearing L LE with walker, use scripts for Xarelto 10mg po every day x 20 days, and [place] as instructed, when Xarelto course is completed, start ASA 325mg po BID x 1 month, call office [phone] for any problems or questions Patient Instructions: Antibiotic Form, Pain Management (GEN), Total Hip Replacement (GEN) Stand Alone Forms: General Discharge Information Follow-up/Referrals: Sebastián Palafox MD [Physician] - Discharge Medications: New hydrocodone-acetaminophen 7.5-325 mg Tablet 1 tablet PO Q6H PRN (Reason: Pain Rated 7-10) Qty: 40 RF: 0 Continued zolpidem [Ambien] 10 mg tablet 10 mg PO PRN PRN (Reason: sleep) RF: 0 atorvastatin 20 mg tablet 20 mg PO DAILY RF: 0 cholecalciferol (vitamin D3) 1,000 unit capsule 1,000 unit PO DAILY RF: 0 cyanocobalamin (vitamin B-12) 500 mcg tablet 500 mcg PO DAILY RF: 0 omega-3 fatty acids [Fish Oil Concentrate] 1,000 mg capsule 1,000 mg PO DAILY RF: 0 fluticasone propionate [Allergy Relief (fluticasone)] 50 mcg/actuation spray,suspension 1 spray NASAL DAILY RF: 0 furosemide 40 mg tablet 40 mg PO QAM RF: 0 lorazepam 0.5 mg tablet 0.5 mg PO DAILY PRN (Reason: Anxiety) RF: 0 multivitamin [Multiple Vitamins] Tablet 1 tablet PO DAILY RF: 0 potassium chloride 20 mEq tablet extended release 10 meq PO DAILY RF: 0 bupropion HCl 300 mg tablet extended release 24 hr 300 mg PO QAM RF: 0 latanoprost 0.005 % drops, emulsion 1 drp EACH EYE DAILY RF: 0 brimonidine 0.15 % drops 1 drp EACH EYE Q8H RF: 0 duloxetine 60 mg capsule,delayed release(DR/EC) 60 mg PO DAILY RF: 0 omeprazole 20 mg tablet,delayed release (DR/EC) 20 mg PO DAILY RF: 0 albuterol sulfate 90 mcg/actuation HFA aerosol inhaler 1 - 2 inh inhalation Q4-6H PRN (Reason: shortness of breath or wheezing) Qty: 8.5 RF: 2 Discontinued aspirin 81 mg tablet,delayed release (DR/EC)
--- NOTE | 2021-05-13 12:20 | P.PNIM_ITS ---
Progress Note: A&P Assessment and Plan (1) Osteoarthritis of left hip: Qualifiers: Osteoarthritis type: unspecified Qualified Code(s): M16.12 - Unilateral primary osteoarthritis, left hip Code(s): M16.12 - Unilateral primary osteoarthritis, left hip Status: Acute Assessment and Plan: Presented with worsening left hip pain * Hip x-ray showed worsened advanced left hip osteoarthritis. 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 Tolerated procedure well * Supportive care. Analgesics available as needed * Continue PT/OT at SNF * Xarelto 10 mg daily x20 days for DVT prophylaxis than aspirin following per Orthopedic surgery * Follow-up with Dr. Palafox, Ortho, as an outpatient (2) Chronic obstructive pulmonary disease, unspecified: Qualifiers: COPD type: unspecified COPD Qualified Code(s): J44.9 - Chronic obstructive pulmonary disease, unspecified Code(s): J44.9 - Chronic obstructive pulmonary disease, unspecified Status: Acute Assessment and Plan: Not in acute exacerbation * Continue home inhalers (3) CHF (congestive heart failure), NYHA class I: Code(s): I50.9 - Heart failure, unspecified Status: Chronic Assessment and Plan: She was euvolemic on exam * Last echocardiogram showed grade 1 diastolic dysfunction with EF 60% * Continue furosemide 40 mg daily (4) Anxiety: Code(s): F41.9 - Anxiety disorder, unspecified Status: Chronic Assessment and Plan: No acute issues * Continue duloxetine and bupropion and p.r.n. lorazepam (5) Obstructive sleep apnea: Code(s): G47.33 - Obstructive sleep apnea (adult) (pediatric) Status: Chronic Assessment and Plan: CPAP provided during her hospital stay though she declined as she was not co mfortable using the hospital issued CPAP machine * Her daughter will bring her home CPAP to SNF so she can continue with CPAP therapy (6) Acute kidney injury: Code(s): N17.9 - Acute kidney failure, unspecified Status: Acute Assessment and Plan: Resolved. Creatinine elevated at 1.3 on presentation * No prior labs to establish baseline * Creatinine improved to 1.0.-1.1 (7) Chest tightness: Code(s): R07.89 - Other chest pain Status: Acute Assessment and Plan: Endorsed episode of chest tightness on the morning of 05/12 the promptly resolved * [place] to be due to acute anxiety * Acute coronary syndrome ruled out with negative cardiac enzymes * EKG reviewed without ischemic changes * CXR with minimal atelectasis, otherwise no acute findings. Incentive spirometry provided * Episode resolved with no further issues Subjective Date/time seen: 05/13/21 12:20 Interval history: Date of service: 05/13/2021 Emma Cintron is a 75-year-old female with a history of CHF, COPD, JASON, and severe osteoarthritis of left hip who is now s/p left total hip arthroplasty on 05/11/2021. She feels well today. She has been sleeping comfortably. Her pain is well controlled. Doty catheter removed yesterday and she has been voiding without issues. She is ready to discharge to SNF today. Review of Systems Review of Systems: All systems reviewed & are unremarkable except as noted in HPI and below Exam Narrative: Ms. Cintron is an obese, well-appearing 75-y
--- NOTE | 2021-05-13 12:20 | PM.IMPN ---
Progress Note: A&P Assessment and Plan (1) Osteoarthritis of left hip: Qualifiers: Osteoarthritis type: unspecified Qualified Code(s): M16.12 - Unilateral primary osteoarthritis, left hip Code(s): M16.12 - Unilateral primary osteoarthritis, left hip Status: Acute Assessment and Plan: Presented with worsening left hip pain Hip x-ray showed worsened advanced left hip osteoarthritis. 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 Tolerated procedure well Supportive care. Analgesics available as needed Continue PT/OT at SNF Xarelto 10 mg daily x20 days for DVT prophylaxis than aspirin following per Orthopedic surgery Follow-up with Dr. Palafox, Ortho, as an outpatient (2) Chronic obstructive pulmonary disease, unspecified: Qualifiers: COPD type: unspecified COPD Qualified Code(s): J44.9 - Chronic obstructive pulmonary disease, unspecified Code(s): J44.9 - Chronic obstructive pulmonary disease, unspecified Status: Acute Assessment and Plan: Not in acute exacerbation Continue home inhalers (3) CHF (congestive heart failure), NYHA class I: Code(s): I50.9 - Heart failure, unspecified Status: Chronic Assessment and Plan: She was euvolemic on exam Last echocardiogram showed grade 1 diastolic dysfunction with EF 60% Continue furosemide 40 mg daily (4) Anxiety: Code(s): F41.9 - Anxiety disorder, unspecified Status: Chronic Assessment and Plan: No acute issues Continue duloxetine and bupropion and p.r.n. lorazepam (5) Obstructive sleep apnea: Code(s): G47.33 - Obstructive sleep apnea (adult) (pediatric) Status: Chronic Assessment and Plan: CPAP provided during her hospital stay though she declined as she was not comfortable using the hospital issued CPAP machine Her daughter will bring her home CPAP to SNF so she can continue with CPAP therapy (6) Acute kidney injury: Code(s): N17.9 - Acute kidney failure, unspecified Status: Acute Assessment and Plan: Resolved. Creatinine elevated at 1.3 on presentation No prior labs to establish baseline Creatinine improved to 1.0.-1.1 (7) Chest tightness: Code(s): R07.89 - Other chest pain Status: Acute Assessment and Plan: Endorsed episode of chest tightness on the morning of 05/12 the promptly resolved [place] to be due to acute anxiety Acute coronary syndrome ruled out with negative cardiac enzymes EKG reviewed without ischemic changes CXR with minimal atelectasis, otherwise no acute findings. Incentive spirometry provided Episode resolved with no further issues Subjective Date/time seen: 05/13/21 12:20 Interval history: Date of service: 05/13/2021 Emma Cintron is a 75-year-old female with a history of CHF, COPD, JASON, and severe osteoarthritis of left hip who is now s/p left total hip arthroplasty on 05/11/2021. She feels well today. She has been sleeping comfortably. Her pain is well controlled. Doty catheter removed yesterday and she has been voiding without issues. She is ready to discharge to SNF today. Review of Systems Review of Systems: All systems reviewed & are unremarkable except as noted in HPI and below Exam Narrative: Ms. Cintron is an obese, well-appearing 75-year-old female who is lying supine in bed. She appears comfortable and is in NARD. Neuro: awake, alert and oriented x4, speech clear, no focal neuro deficits noted HEENMT: normocephalic, atraumatic, EOMI, sclerae anicteric Neck: supple, no lymphadenopathy Respiratory: clear to auscultation bilaterally, nonlabored breathing Cardio: regular rate, regular rhythm with S1-S2 Abdomen: nondistended, normoactive bowel sounds, soft, nontender to palpation Extremities: left h
[2021-05-13 16:57] LABS: EDCOVIDSCREEN Negative (Negative)
== END 2021-05-13 17:25 | DRG 470 ==
LOC: ANHED 15:21 → ANH3MEDSUR 17:53
PROVIDERS: Nurse Practitioner; Orthopaedic Surgery; Admitting Provider Hospitalist; Emergency Provider Emergency Medicine; PCP Internal Medicine; Visit Provider Physician Assistant
PROC: 0SRB0JZ Replacement of Left Hip Joint with Synthetic Substitute, Open Approach (ICD-10-PCS; CPT 27130; principal; 2021-05-11 14:00)
DX: M16.12 Unilateral primary osteoarthritis, left hip (principal); M87.852 Other osteonecrosis, left femur; N17.9 Acute kidney failure, unspecified; R07.89 Other chest pain; F41.9 Anxiety disorder, unspecified; Z20.822 Contact with and (suspected) exposure to COVID-19; J44.9 Chronic obstructive pulmonary disease, unspecified; G47.33 Obstructive sleep apnea (adult) (pediatric); I50.9 Heart failure, unspecified; H40.9 Unspecified glaucoma; E78.5 Hyperlipidemia, unspecified; Z96.641 Presence of right artificial hip joint; Z28.21 Immunization not carried out because of patient refusal; Z79.899 Other long term (current) drug therapy; Z87.891 Personal history of nicotine dependence; Z88.0 Allergy status to penicillin; Z88.1 Allergy status to other antibiotic agents
CPT/HCPCS: 36415; 71045; 73502; 80048; 80053; 82728; 83036; 83605; 83615; 83735; 84443; 84484; 85014; 85018; 85025; 85027; 85610; 85730; 87426; 93005; 96372; 97110; 97116; 97161; 97165; 97530; 97535; 99285; A9270; C1713; C1776; C9290; C9803; J0171; J0690; J1100; J1170; J2060; J2405; J2704; J3010; J3370; J7030; J7120; U0003; U0005

== ENCOUNTER 2021-06-22 14:29 | Emergency (ER) | payer OTHER, SELFPAY ==
--- NOTE | ~2021-06-22 | CT_ITS ---
EXAMINATION: CT brain wo con DATE: 06/22/2021 15:34 INDICATION: Head injury. TECHNIQUE: Computed tomography (CT) of the head was performed without intravenous contrast. The mA wa s adjusted according to patient size. Iterative reconstruction technique was employed. The dose-lengt h product was 605.33 mGy-cm. COMPARISON: None FINDINGS: There is no intracranial hemorrhage, acute infarction, or abnormal intracranial mass lesion . There are scattered areas of low attenuation in the cerebral white matter. The ventricles are monroe l in size. There is mild mucosal thickening in the paranasal sinuses. The orbits are normal. The mast oid air cells are normal. IMPRESSION: 1. Mild nonspecific cerebral white matter disease, which likely represents chronic small vessel ische natasha disease. Reviewed, dictated and finalized at location A. IMPRESSION: 1. Mild nonspecific cerebral white matter disease, which likely represents commutator presser tico small vessel ischemic disease.
--- NOTE | ~2021-06-22 | XR_ITS ---
EXAMINATION: XR chest 1V portable DATE: 06/22/2021 15:22 INDICATION: Fall. Chronic obstructive pulmonary disease. TECHNIQUE: A single frontal view of the chest was obtained. COMPARISON: Chest single view 05/12/2021, chest CT 04/16/2021 FINDINGS: The chest demonstrates clear lungs without pneumonia, pleural effusion, or pneumothorax. Th e heart size is normal. IMPRESSION: 1. No acute cardiopulmonary disease. Reviewed, dictated and finalized at location A.
--- NOTE | ~2021-06-22 | XR_ITS ---
EXAMINATION: XR hip LT 2V w AP pelvis DATE: 06/22/2021 15:04 INDICATION: Left hip injury. TECHNIQUE: An anteroposterior view of the pelvis on 3 radiographs and 2 views of left hip were obtain ed. COMPARISON: Pelvis and left hip radiographs 05/10/2021 FINDINGS: There are bilateral total hip arthroplasties in near-anatomic alignment. There is an obliqu e periprosthetic fracture of left femoral diaphysis. The distal fracture fragment demonstrates 8 mm m edial displacement. There is severe lumbar spondylosis. IMPRESSION: 1. Oblique periprosthetic fracture of left femoral diaphysis. 2. Total right hip arthroplasty in near-anatomic alignment. Reviewed, dictated and finalized at location A.
[2021-06-22 14:30] VITALS: BP 151/80; PULSE 93; RESP 18; TEMP 36.2; O2SAT 99
[2021-06-22] MEDS: MORPHINE SULFATE (*CRX) 2 MG/ML INJ IV PUSH ×2 (15:17→16:02)
[2021-06-22 15:19] LABS: Basophils Percent Auto 0.5 % (0.2-1.2); Eosinophils Absolute Auto 0.2 K/mm3 (0-0.3); Eosinophils Percent Auto 3.7 % (0-4.4); Hematocrit 36.6 % (37.0-47.0); Immature Granulocyte Absolute 0.02 K/mm3 (0.00-0.031); Immature Granulocyte Percent A 0.4 % (0-0.5); Lymphocytes Percent Auto 22.9 % (18.3-44.2); Mean Corpuscular HGB Conc 30.1 g/dl (32-36); Mean Corpuscular Hemoglobin 27.7 pg (26-34); Mean Corpuscular Volume 92.2 fl (80-100); Mean Platelet Volume 8.3 fl (7.4-10.4); Monocytes Absolute Auto 0.5 K/mm3 (0.1-0.6); Monocytes Percent Auto 8.1 % (2.6-8.5); Neutrophils Absolute Auto 3.7 K/mm3 (1.3-6.7); Neutrophils Percent Auto 64.4 % (45.5-73.1); Platelet Count Result 445 k/mm3 (150-375); Red Blood Count 3.97 M/mm3 (4.2-5.4); Red Cell Distribution Width 15.7 % (11.5-14.5); White Blood Count 5.7 K/mm3 (4.5-10.0)
[2021-06-22 15:28] LABS: INR 1.1; Prothrombin Time 13.8 Seconds (11.1-14.7)
[2021-06-22 15:29] LABS: Alanine Aminotransferase 20 U/L (4-35); Albumin Level 3.9 g/dL (3.5-5.1); Alkaline Phosphatase 108 U/L (38-126); Anion Gap 7 mmol/L (8-16); Aspartate Amino Transferase 30 U/L (14-36); Bilirubin,Total 0.7 mg/dL (0.2-1.3); Blood Urea Nitrogen 15 mg/dL (7-17); Calcium 9.1 mg/dL (8.4-10.2); Carbon Dioxide 30 mmol/L (22-30); Chloride 101 mmol/L (98-107); Estimated CRCL calculation 44 ml/min; Estimated Glomerular Filt Rate 48; Glucose 103 mg/dL (65-110); Partial Thromboplastin Time 29.2 SECONDS (22.3-36.8); Potassium 3.9 mmol/L (3.4-5.0); Sodium 138 mmol/L (137-145)
[2021-06-22 15:38] VITALS: BP 143/94; PULSE 95; RESP 18; O2SAT 96
--- NOTE | 2021-06-22 15:43 | ED.FALL ---
HPI - Fall General Chief Complaint: Fall Stated Complaint: L hip pain s/p fall Time Seen by Provider: 06/22/21 14:32 Source: RN notes reviewed History of Present Illness HPI Narrative: Patient presents emergency department from home via EMS for fall. Patient states that she was stepping over a curb when she tripped on the curb and fell landing on her left hip she states she had left hip pain since that time and not able to get up. States that she just had a hip replacement by Dr. Palafox on May 11, 2020. She did bump her head but denies any loss of consciousness she denies any chest pain shortness of breath abdominal pain numbness or tingling in the extremities or any other symptoms Related Data Home Medications Medication Instructions Recorded Confirmed atorvastatin 20 mg tablet 20 mg PO DAILY 03/19/19 05/10/21 cholecalciferol (vitamin D3) 25 1,000 unit PO DAILY 03/19/19 05/10/21 mcg (1,000 unit) capsule cyanocobalamin (vitamin B-12) 500 500 mcg PO DAILY 03/19/19 05/10/21 mcg tablet fluticasone propionate 50 1 spray NASAL DAILY 03/19/19 05/10/21 mcg/actuation nasal spray,suspension furosemide 40 mg tablet 40 mg PO QAM 03/19/19 05/10/21 lorazepam 0.5 mg tablet 0.5 mg PO DAILY PRN 03/19/19 05/10/21 multivitamin 1 tablet PO DAILY 03/19/19 05/10/21 omega-3 fatty acids 1,000 mg 1,000 mg PO DAILY 03/19/19 05/10/21 capsule zolpidem 10 mg tablet 10 mg PO PRN PRN 03/19/19 05/10/21 brimonidine 0.15 % eye drops 1 drp EACH EYE Q8H 01/14/21 05/10/21 bupropion HCl 300 mg 24 hr tablet, 300 mg PO QAM 01/14/21 05/10/21 extended release duloxetine 60 mg capsule,delayed 60 mg PO DAILY 01/14/21 05/10/21 release latanoprost 0.005 % eye drops, 1 drp EACH EYE DAILY 01/14/21 05/10/21 emulsion omeprazole 20 mg tablet,delayed 20 mg PO DAILY 01/14/21 05/10/21 release potassium chloride 20 mEq 10 meq PO DAILY tablet 01/14/21 05/10/21 tablet,extended release Allergies Allergy/AdvReac Type Severity Reaction Status Date / Time nitrofurantoin Allergy Unknown unknown Verified 05/11/21 13:10 Penicillins Allergy Unknown unknown Verified 05/11/21 13:10 Review of Systems Review of Systems: Gen.: Denies fevers or chills ENT: Denies congestion Respiratory: Denies shortness of breath or cough CV: Denies chest pain or palpitations GI: Denies abdominal pain nausea, emesis or diarrhea Musculoskeletal: See HPI Neuro: Denies numbness, tingling, weakness or focal weakness Skin: Denies rash Except as documented, all other systems reviewed and negative [facility] Past Medical History Medical History Acute and chronic respiratory failure Allergic rhinitis Anxiety CHF (congestive heart failure), NYHA class I Chronic obstructive pulmonary disease, unspecified Glaucoma History of tobacco abuse Hyperlipidemia Obesity Obstructive sleep apnea Obstructive sleep apnea (adult) (pediatric) Osteoarthritis Osteoarthritis of left hip Surgical History Surgical History History of throat surgery 2012 polyp History of tonsillectomy [facility] Total knee replacement status 2018 [place] Family History Family History Sibling Family history of multiple sclerosis, Onset Age: 49 Patient's sister is Father Hypertension Family history of transient ischemic attacks, Onset Age: 72 Acute myocardial infarction, Onset Age: 72 Patient's father is Mother Family history of lung cancer, Onset Age: 72 Patient's mother is Social History Social History Social History: the patient stated that she stopped smoking in 2014. She lives with her who has Parkinson's. She has One daughter. The daughter and are
[2021-06-22 16:08] LABS: Add Urine Microscopic? YES; Appearance Urine Cloudy (Clear); Bacteria Urine Trace /hpf; Bilirubin Urine Negative (Negative); Color Urine Yellow (Yellow); Glucose Urine UA Negative (Negative); Ketones Urine Negative (Negative); Leukocyte Esterase Ur Negative LEU/UL (Negative); Nitrate Urine Positive (Negative); Protein Urine Negative (Negative); RBC Urine 0-2 /hpf (0-2); Specific Grav Ur 1.005 (1.001-1.035); Squamous Epithelial Cell Urine Few /hpf (Few); Urobilinogen Urine Negative mg/dL (<2.0)
[2021-06-22 16:09] LABS: Blood Urine Negative (Negative)
--- NOTE | 2021-06-22 16:27 | PC.NURSE ---
made contact with [facility] to transfer pt to [facility]. company is in route
--- NOTE | 2021-06-22 16:31 | PC.NURSE ---
[facility] has arrived
[2021-06-22 16:35] VITALS: BP 133/91; PULSE 92; RESP 18; O2SAT 96
== END 2021-06-22 16:45 | disposition short-term general hospital (02) ==
PROVIDERS: Emergency Provider Emergency Medicine; PCP Internal Medicine
DX: S79.192A Other physeal fracture of lower end of left femur, initial encounter for closed fracture (principal); M97.02XA Periprosthetic fracture around internal prosthetic left hip joint, initial encounter; I50.9 Heart failure, unspecified; E78.5 Hyperlipidemia, unspecified; J44.9 Chronic obstructive pulmonary disease, unspecified; H40.9 Unspecified glaucoma; G47.33 Obstructive sleep apnea (adult) (pediatric); M16.12 Unilateral primary osteoarthritis, left hip; J96.10 Chronic respiratory failure, unspecified whether with hypoxia or hypercapnia; F41.9 Anxiety disorder, unspecified; Z96.659 Presence of unspecified artificial knee joint; Z96.643 Presence of artificial hip joint, bilateral; Z87.891 Personal history of nicotine dependence; R90.82 White matter disease, unspecified; Z79.01 Long term (current) use of anticoagulants; W10.1XXA Fall (on)(from) sidewalk curb, initial encounter
CPT/HCPCS: 36415; 70450; 71045; 73502; 80053; 81001; 85025; 85610; 85730; 87077; 87086; 87186; 96374; 96376; 99285; J2270

== ENCOUNTER 2022-06-21 11:11 | Outpatient (CLI) | payer OTHER, SELFPAY ==
--- NOTE | ~2022-06-21 | CT_ITS ---
EXAMINATION: CT lung screening DATE: 06/21/2022 11:30 INDICATION: ct lung screening . Former smoker. TECHNIQUE: Computed tomography (CT) of the chest was performed without intravenous contrast. Addition al 3D reconstructions utilizing coronal maximum intensity projection (MIP) were performed. Automated exposure control and iterative reconstruction technique were employed. The dose-length product was 28 5.22 mGy-cm. COMPARISON: 04/16/2021 FINDINGS: There are a few small calcified nodules in the right middle lobe and lingula along with calcified rig ht hilar and mediastinal lymph nodes consistent with old granulomatous disease. No other suspicious p ulmonary nodules, pneumonia, pulmonary edema or pleural effusion. Heart size is normal. No pericardia l effusion. Atherosclerotic coronary artery calcification and aortic valve calcification. Thoracic ao rta is normal in caliber. No pathologically enlarged thoracic lymphadenopathy. A few hepatic and sple tico calcific lesions consistent with old granulomatous disease. Moderate to severe cervical and thora cic spondylosis. IMPRESSION: 1. Lung-RADS category 1: Negative. Continue annual screening with noncontrast low-dose chest CT in 12 months. Reviewed, dictated and finalized at location B. IMPRESSION: 1. Lung-RADS category 1: Negative. Continue annual screening with noncontrast l ow-dose chest CT in 12 months.
== END 2022-06-21 11:12 | disposition home or self-care (01) ==
PROVIDERS: PCP Internal Medicine; Visit Provider Nurse Practitioner Family
DX: Z12.2 Encounter for screening for malignant neoplasm of respiratory organs (principal); Z87.891 Personal history of nicotine dependence
CPT/HCPCS: 71271

== ENCOUNTER 2022-07-12 12:51 | Emergency (ER) | payer OTHER, SELFPAY ==
[2022-07-12 13:02] VITALS: BP 114/53; PULSE 100; RESP 18; TEMP 36.9; O2SAT 100
[2022-07-12 13:04] VITALS: BP 114/53; PULSE 100; RESP 18; TEMP 36.9; O2SAT 100
--- NOTE | 2022-07-12 13:27 | ED.BACK ---
HPI - Back Pain/Injury General Chief Complaint: Extremity Injury, Lower Stated Complaint: Left Leg Pain Time Seen by Provider: 07/12/22 13:30 Source: patient and RN notes reviewed Mode of arrival: ambulatory Limitations: no limitations History of Present Illness HPI Narrative: 76-year-old female presents with concern for right low back pain that radiates down the right friend leg. She reports she had a hip replacement 1 year ago and had been without a walker or cane for some time, she recently saw her surgeon who put her back on a cane. Reports when she started using that she began having low back pain that she attributes to walking differently with the cane. Reports the pain radiates to the front of the leg. She denies loss of bowel or bladder function, perianal anesthesia, weakness in any extremity, abdominal pain, fever. Reports she has been taking 5 mg cyclobenzaprine with some relief but not quite enough. Reports she has also been taking Motrin MD elicited complaint: back pain Related Data Home Medications Medication Instructions Recorded Confirmed atorvastatin 20 mg tablet 20 mg PO DAILY 03/19/19 07/08/22 cholecalciferol (vitamin D3) 25 1,000 unit PO DAILY 03/19/19 07/08/22 mcg (1,000 unit) capsule cyanocobalamin (vitamin B-12) 500 500 mcg PO DAILY 03/19/19 07/08/22 mcg tablet fluticasone propionate 50 1 spray intranasal DAILY 03/19/19 07/08/22 mcg/actuation nasal spray,suspension (Allergy Relief (fluticasone)) furosemide 40 mg tablet 40 mg PO QAM 03/19/19 07/08/22 lorazepam 0.5 mg tablet 0.5 mg PO DAILY PRN Anxiety 03/19/19 07/08/22 multivitamin (Multiple Vitamins 1 tablet PO DAILY 03/19/19 07/08/22 tablet) omega-3 fatty acids 1,000 mg 1,000 mg PO DAILY 03/19/19 07/08/22 capsule (Fish Oil Concentrate) zolpidem 10 mg tablet (Ambien) 10 mg PO PRN PRN sleep 03/19/19 07/08/22 brimonidine 0.15 % eye drops 1 drp EACH EYE Q8H 01/14/21 07/08/22 bupropion HCl 300 mg 24 hr tablet, 300 mg PO QAM 01/14/21 07/08/22 extended release duloxetine 60 mg capsule,delayed 60 mg PO DAILY 01/14/21 07/08/22 release omeprazole 20 mg tablet,delayed 20 mg PO DAILY 01/14/21 07/08/22 release potassium chloride 20 mEq 10 meq PO DAILY 01/14/21 07/08/22 tablet,extended release aspirin 81 mg tablet,delayed 81 mg PO DAILY 07/08/22 07/08/22 release (Adult Aspirin Regimen) lisinopril 10 mg tablet 20 mg PO 07/08/22 07/08/22 umeclidinium 62.5 mcg-vilanterol 1 inh inhalation Q24H 07/08/22 07/08/22 25 mcg/actuation powdr for inhalation (Anoro Ellipta) ascorbate sodium (vitamin C) 07/12/22 coQ10 (ubiquinol) 07/12/22 magnesium 07/12/22 Allergies Allergy/AdvReac Type Severity Reaction Status Date / Time nitrofurantoin Allergy Unknown unknown Verified 07/12/22 12:59 Penicillins Allergy Unknown unknown Verified 07/12/22 12:59 Review of Systems Review of Systems: CONSTITUTIONAL: Denies malaise, chills, sweats, or fever. CARDIOVASCULAR: Denies chest pain, palpitations, or edema. RESPIRATORY: Denies cough or dyspnea. GASTROINTESTINAL: Denies abdominal pain, nausea, vomiting, diarrhea, loss of bowel function GENITOURINARY: Denies dysuria, hematuria, frequency, loss of bladder function. SKIN: Denies rash or itching. MUSCULOSKELETAL: Reports low back pain that radiates down the left leg NEUROLOGIC: Denies numbness, weakness, or headache. All systems reviewed & are unremarkable except as noted in HPI and below PMFSH Past Medical History Medical History Acute and chronic respiratory failure Allergic rhinitis Anxiety CHF (congestive heart failure), NYHA class I Chronic obstructive pulmonary disease, unspecified Glaucoma History of tobacco abuse Hyperlipidemia Obesity Obstructive sleep apnea Obstructive sleep apnea (adult) (pediatric) Osteoarthritis Osteoarthritis of left hip Surgical History Surgical History (Reviewed 07/08/22 @ 11:38 by Paula Frazier
== END 2022-07-12 13:44 | disposition home or self-care (01) ==
PROVIDERS: Emergency Provider Nurse Practitioner; PCP Internal Medicine
DX: M54.50 Low back pain, unspecified (principal); Z87.891 Personal history of nicotine dependence; F12.90 Cannabis use, unspecified, uncomplicated; J44.9 Chronic obstructive pulmonary disease, unspecified; H40.9 Unspecified glaucoma; E78.5 Hyperlipidemia, unspecified; M16.12 Unilateral primary osteoarthritis, left hip; I50.9 Heart failure, unspecified; F41.9 Anxiety disorder, unspecified
CPT/HCPCS: 99213; G0463

== ENCOUNTER 2022-07-28 09:04 | Outpatient (CLI) | payer OTHER, SELFPAY ==
[2022-07-28 09:20] VITALS: PULSE 90; O2SAT 98
[2022-07-28 09:25] VITALS: PULSE 100; O2SAT 94
[2022-07-28 09:35] VITALS: PULSE 91; O2SAT 97
--- NOTE | 2022-07-28 10:06 | HOMEO2EVAL ---
Evaluation was performed at [facility] Home Oxygen Evaluation RC: Home Oxygen (O2) Evaluation Start: 07/28/22 09:36 Freq: Status: Active Protocol: RPE Activity Type Activity Date Activity User E-sign Co-sign Detail Recorded Client Recorded Date Recorded By Document 07/28/22 09:20 [email or web address] [email or web address] 07/28/22 09:40 DJO Document 07/28/22 09:25 [email or web address] [email or web address] 07/28/22 09:40 DJO Document 07/28/22 09:35 [email or web address] [email or web address] 07/28/22 09:40 DJO 07/28/22 07/28/22 07/28/22 09:20 09:25 09:35 Home O2 Evaluation [Oxygen] -Test Phase Resting Exercise Resting -Oxygen Delivery Room Air Room Air Room Air [Pulse Oximetry] -Pulse Oximetry (90-100 %) 98 94 97 [Pulse Rate] -Pulse Rate (60-100 beats/min) 90 100 91 [Evaluation] -Activity Tolerance Fair [Comments] -Home Oxygen Evaluation Comments 6 MINUTE WALK ORDERD, PT ONLY ABLE TO WALK 200 FEET DUE TO LEG KNEE AND HIP PAIN. [Charges] -Treatment Charges O2 Evaluation - Outpatient
--- NOTE | 2022-08-02 08:04 | WPDPFTINT ---
PFT Procedure Performed PFT Procedure Performed Spirometry with Pre/Post Bronchodilator Plethysmography (Lung Vol) Diffusing Cap (DLCO) Flow Vol Loop PFT Interpretation DOS:07/28/2022 REQUESTING: Kiet Georges APRN REASON FOR TESTING: Dyspnea PULMONARY FUNCTION TESTS Results are reliable and reproducible. Spirometry: Pre-bronchodilator FEV1 is 1.78 L, 84%, normal. Pre bronchodilator FVC is 2.61 L, 95%, normal. FEV1/FVC is 68%, normal. After bronchodilator, there is a 2% increase in the FEV1 and a 2% decrease in the FVC, FEV1/FVC ratio is 71%, normal. Lung volumes: Total lung capacity is 5.57 L, 107%, normal. Residual volume is 2.96 L, 126%, upper limit of normal. RV/TLC 53%, upper limit normal. Airway resistance 4.02 cmH20/L/sec, 224%. Diffusion: DLCO is 15.7, 78%, normal. DLCO / VA 4.16, 100%. Flow volume loop: Normal. IMPRESSION: Normal spirometry, normal lung volumes, normal diffusion and flow volume loop. No significant response to bronchodilator. Lack of response to bronchodilator should not preclude use if clinically indicated. Qiana Rome MD
== END 2022-07-28 09:05 | disposition home or self-care (01) ==
LOC: ANHPFT 09:06
PROVIDERS: PCP Internal Medicine; Visit Provider Nurse Practitioner Family
DX: J44.9 Chronic obstructive pulmonary disease, unspecified (principal); R06.09 Other forms of dyspnea
CPT/HCPCS: 94060; 94618; 94726; 94729

== ENCOUNTER 2022-11-18 04:02 | Observation (INO) | payer OTHER, SELFPAY ==
--- NOTE | ~2022-11-18 | MR_ITS ---
EXAMINATION: MR lumbar spine wo con DATE: 11/18/2022 17:27 INDICATION: radicular pain left leg,severe worsening overnight . TECHNIQUE: Magnetic resonance imaging (MRI) of the lumbar spine was performed without intravenous con trast. Sequences included sagittal T2-weighted FSE, sagittal T2-weighted FS FSE, sagittal T1-weighted FSE, and axial T2-weighted FSE. COMPARISON: None FINDINGS: The last fully formed and hydrated disc is designated L5-S1. The marrow signal is benign. C onus terminates at L2. Multilevel disc space narrowing and dehydration. Cystic area in the left renal hilum. The following disc levels are specifically discussed: T11-T12: Mild diffuse bulge. There is no facet joint osteoarthritis. There is no neural foraminal jennifer nosis. There is no central canal stenosis. T12-L1: The disc does not extend beyond the endplate margin. There is mild facet joint osteoarthritis . There is no neural foraminal stenosis. There is no central canal stenosis. L1-L2: Mild diffuse bulge. There is moderate facet joint osteoarthritis. There is mild bilateral neur al foraminal stenosis. There is mild central canal stenosis. L2-L3: Moderate diffuse bulge. There is severe facet joint osteoarthritis. There is moderate bilatera l neural foraminal stenosis. There is severe central canal stenosis. L3-L4: Moderate diffuse bulge. There is severe facet joint osteoarthritis. There is moderate bilatera l neural foraminal stenosis. There is moderate central canal stenosis. L4-L5: Moderate diffuse bulge There is moderate facet joint osteoarthritis. There is mild bilateral n eural foraminal stenosis. There is mild central canal stenosis. L5-S1: Moderate diffuse bulge There is moderate facet joint osteoarthritis. There is moderate bilater al neural foraminal stenosis. There is mild central canal stenosis. IMPRESSION: Severe central canal stenosis at L2-3 secondary to degenerative disc and facet changes. Multilevel moderate-severe degrees of degenerative disc disease and facet arthropathy. Multilevel moderate bilateral neural foraminal narrowing. Cystic area in the left renal hilum may represent a simple renal cyst or parapelvic cyst, less likely hydronephrosis. Consider renal ultrasound for further characterization. Reviewed, dictated and finalized at location K. IMPRESSION: Severe central canal stenosis at L2-3 secondary to degenerative disc and facet changes. Multilevel moderate-severe degrees of degenerative disc disease and facet arthr opathy. Multilevel moderate bilateral neural foraminal narrowing. Cystic area in the left renal hilum may represent a simple renal cyst or parape lvic cyst, less likely hydronephrosis. Consider renal ultrasound for further ch aracterization.
--- NOTE | ~2022-11-18 | CT_ITS ---
EXAMINATION: CT femur LT wo con DATE: 11/19/2022 15:09 INDICATION: Left thigh pain TECHNIQUE: High resolution computed tomography (CT) of the left thigh/femur was performed without int ravenous contrast. Additional sagittal and coronal reconstructions were performed. Automated exposure control and iterative reconstruction technique were employed. The dose-length product was 1126.02 mG y-cm. COMPARISON: Left hip radiographs dated 11/18/2022 FINDINGS: Left total hip arthroplasty with chronic periprosthetic fracture with with prominent heterotopic ossi fication bridging the displaced fracture fragments. Multiple cerclage wires more distally about the f emoral stem at the proximal femoral diaphysis. Alignment of the left hip arthroplasty remains near-an atomic. A contralateral right total hip arthroplasty is also seen on the artificial pearl maker topogram. Left total k nee arthroplasty with patellar resurfacing also near-anatomic alignment. No acute fractures identifie d. No left hip or knee joint effusion. Linear postoperative scarring the subcutaneous tissues along t he lateral aspect of the left hip and proximal thigh. No pathologically enlarged left pelvic or ingui nal lymphadenopathy. IMPRESSION: 1. Prominent heterotopic ossification bridging several displaced periprosthetic fracture fragments at the proximal left femur surrounding a left total hip arthroplasty. No acute fracture identified. Reviewed, dictated and finalized at location B. IMPRESSION: 1. Prominent heterotopic ossification bridging several displaced periprosthetic fracture fragments at the proximal left femur surrounding a left total hip art hroplasty. No acute fracture identified.
--- NOTE | ~2022-11-18 | XR_ITS ---
EXAM: XR hip LT 2V w AP pelvis DATE: 11/18/2022 17:19 HISTORY: pain left leg, prior surgery . COMPARISON: 06/22/2021. FINDINGS: Severe lumbar degenerative disc disease. Partially visualized uncomplicated appearing righ t hip arthroplasty. Left hip arthroplasty with femoral cerclage wires. No perihardware lucency or francheska dware fracture. Considerable heterotopic bone formation about the left hip. IMPRESSION: Considerable heterotopic bone formation about the left hip, to a degree that may cause pain and affec t range of motion. No radiographic evidence of hardware fracture, loosening, or infection. Reviewed, dictated and finalized at location K. IMPRESSION: Considerable heterotopic bone formation about the left hip, to a degree that ma y cause pain and affect range of motion. No radiographic evidence of hardware fracture, loosening, or infection.
--- NOTE | ~2022-11-18 | US_ITS ---
EXAMINATION: US renal BI DATE: 11/19/2022 08:35 INDICATION: Acute renal insufficiency and defect on MRI. TECHNIQUE: Multiple ultrasound grayscale images of the kidneys were obtained. COMPARISON: MRI dated 07/19/[address] dated 08/30/2016 FINDINGS: The right kidney measures 10.1 x 5.6 x 5.0 cm. The left kidney measures 11.7 x 5.2 x 4.0 cm. The kidn eys demonstrate normal echogenicity. 4.8 cm simple appearing anechoic cyst at the left kidney. There is no hydronephrosis in either kidney. No stones identified. The bladder is normal. IMPRESSION: 1. 4.8 cm left renal cyst. Otherwise normal kidneys without hydronephrosis. Reviewed, dictated and finalized at location B.
[2022-11-18 04:00] VITALS: BP 125/52; PULSE 88; RESP 16; TEMP 36.9; O2SAT 100
[2022-11-18] MEDS: diazePAM (*CRX) 2 MG TABLET PO (04:39)
[2022-11-18] MEDS: predniSONE 20 MG TABLET 40 MG PO (04:39)
[2022-11-18] MEDS: MORPHINE SULFATE (*CRX) 2 MG/ML INJ IV PUSH (04:40)
[2022-11-18] MEDS: GABAPENTIN 100 MG CAPSULE PO (04:59)
--- NOTE | 2022-11-18 05:17 | ED.BACK ---
HPI - Back Pain/Injury General Chief Complaint: Back Pain/Injury Stated Complaint: LOW BACK PAIN/SCIATICA X 1 HOUR Time Seen by Provider: 11/18/22 04:04 History of Present Illness HPI Narrative: 77F p/w pain that goes from her L buttock down to her knee, has had this for a month now and has MRI ordered for this Tuesday but couldn't bear the pain so came in. Has been seen by her doctor and started on PT in the past but didn't like it so stopped. Issue started after her hip sgy when she was given a cane to use and started having spasms on that side after using the cane. Now using a walker instead. Related Data Home Medications Medication Instructions Recorded Confirmed atorvastatin 20 mg tablet 20 mg PO DAILY 03/19/19 10/08/22 cholecalciferol (vitamin D3) 25 1,000 unit PO DAILY 03/19/19 10/08/22 mcg (1,000 unit) capsule cyanocobalamin (vitamin B-12) 500 500 mcg PO DAILY 03/19/19 10/08/22 mcg tablet fluticasone propionate 50 1 spray intranasal DAILY 03/19/19 10/08/22 mcg/actuation nasal spray,suspension (Allergy Relief (fluticasone)) furosemide 40 mg tablet 40 mg PO QAM 03/19/19 10/08/22 lorazepam 0.5 mg tablet 0.5 mg PO DAILY PRN Anxiety 03/19/19 10/08/22 multivitamin (Multiple Vitamins 1 tablet PO DAILY 03/19/19 10/08/22 tablet) omega-3 fatty acids 1,000 mg 1,000 mg PO DAILY 03/19/19 10/08/22 capsule (Fish Oil Concentrate) zolpidem 10 mg tablet (Ambien) 10 mg PO PRN PRN sleep 03/19/19 10/08/22 brimonidine 0.15 % eye drops 1 drp EACH EYE Q8H 01/14/21 10/08/22 bupropion HCl 300 mg 24 hr tablet, 300 mg PO QAM 01/14/21 10/08/22 extended release duloxetine 60 mg capsule,delayed 60 mg PO DAILY 01/14/21 10/08/22 release omeprazole 20 mg tablet,delayed 20 mg PO DAILY 01/14/21 10/08/22 release potassium chloride 20 mEq 10 meq PO DAILY 01/14/21 10/08/22 tablet,extended release aspirin 81 mg tablet,delayed 81 mg PO DAILY 07/08/22 10/08/22 release (Adult Aspirin Regimen) lisinopril 10 mg tablet 20 mg PO 07/08/22 10/08/22 ascorbate sodium (vitamin C) 07/12/22 10/08/22 coQ10 (ubiquinol) 07/12/22 10/08/22 magnesium 07/12/22 10/08/22 ibuprofen 200 mg capsule 600 mg PO Q6H PRN 10/08/22 10/08/22 tizanidine 2 mg capsule 2 mg PO TID PRN 10/08/22 10/08/22 Allergies Allergy/AdvReac Type Severity Reaction Status Date / Time nitrofurantoin Allergy Unknown unknown Verified 10/08/22 11:16 Penicillins Allergy Unknown unknown Verified 10/08/22 11:16 Review of Systems Review of Systems: CONST: No fever. HEENT: No sore throat C/V: No chest pain RESP: No cough GI: No abdominal : No dysuria. M/S: Pain going from L buttock down to knee. SKIN: No rash. NEURO: [No headache or focal numbness or weakness] PSYCH: [No depression] [facility] Past Medical History Medical History Acute and chronic respiratory failure Allergic rhinitis Anxiety CHF (congestive heart failure), NYHA class I Chronic obstructive pulmonary disease, unspecified Glaucoma History of tobacco abuse Hyperlipidemia Obesity Obstructive sleep apnea Obstructive sleep apnea (adult) (pediatric) Osteoarthritis Osteoarthritis of left hip Surgical History Surgical History History of throat surgery 2012 polyp History of tonsillectomy History of total hip arthroplasty 2016 mcarthy Total knee replacement status 2018 roger Family History Family History Sibling Family history of multiple sclerosis, Onset Age: 49 Patient's sister is Father Hypertension Family history of transient ischemic attacks, Onset Age: 72 Acute myocardial infarction, Onset Age: 72 Patient's father is Mother Family history of lung cancer, Onset Age: 72 Patient's mother is Social History Social History (Reviewed 10/08/22
[2022-11-18 05:28] VITALS: BP 116/71; PULSE 80; RESP 19; O2SAT 97
--- NOTE | 2022-11-18 05:50 | ED.BACK ---
HPI - Back Pain/Injury General Chief Complaint: Back Pain/Injury Stated Complaint: LOW BACK PAIN/SCIATICA X 1 HOUR Time Seen by Provider: 11/18/22 04:04 Related Data Home Medications Medication Instructions Recorded Confirmed atorvastatin 20 mg tablet 20 mg PO DAILY 03/19/19 10/08/22 cholecalciferol (vitamin D3) 25 1,000 unit PO DAILY 03/19/19 10/08/22 mcg (1,000 unit) capsule cyanocobalamin (vitamin B-12) 500 500 mcg PO DAILY 03/19/19 10/08/22 mcg tablet fluticasone propionate 50 1 spray intranasal DAILY 03/19/19 10/08/22 mcg/actuation nasal spray,suspension (Allergy Relief (fluticasone)) furosemide 40 mg tablet 40 mg PO QAM 03/19/19 10/08/22 lorazepam 0.5 mg tablet 0.5 mg PO DAILY PRN Anxiety 03/19/19 10/08/22 multivitamin (Multiple Vitamins 1 tablet PO DAILY 03/19/19 10/08/22 tablet) omega-3 fatty acids 1,000 mg 1,000 mg PO DAILY 03/19/19 10/08/22 capsule (Fish Oil Concentrate) zolpidem 10 mg tablet (Ambien) 10 mg PO PRN PRN sleep 03/19/19 10/08/22 brimonidine 0.15 % eye drops 1 drp EACH EYE Q8H 01/14/21 10/08/22 bupropion HCl 300 mg 24 hr tablet, 300 mg PO QAM 01/14/21 10/08/22 extended release duloxetine 60 mg capsule,delayed 60 mg PO DAILY 01/14/21 10/08/22 release omeprazole 20 mg tablet,delayed 20 mg PO DAILY 01/14/21 10/08/22 release potassium chloride 20 mEq 10 meq PO DAILY 01/14/21 10/08/22 tablet,extended release aspirin 81 mg tablet,delayed 81 mg PO DAILY 07/08/22 10/08/22 release (Adult Aspirin Regimen) lisinopril 10 mg tablet 20 mg PO 07/08/22 10/08/22 ascorbate sodium (vitamin C) 07/12/22 10/08/22 coQ10 (ubiquinol) 07/12/22 10/08/22 magnesium 07/12/22 10/08/22 ibuprofen 200 mg capsule 600 mg PO Q6H PRN 10/08/22 10/08/22 tizanidine 2 mg capsule 2 mg PO TID PRN 10/08/22 10/08/22 Allergies Allergy/AdvReac Type Severity Reaction Status Date / Time nitrofurantoin Allergy Unknown unknown Verified 10/08/22 11:16 Penicillins Allergy Unknown unknown Verified 10/08/22 11:16 [facility] Past Medical History Medical History Acute and chronic respiratory failure Allergic rhinitis Anxiety CHF (congestive heart failure), NYHA class I Chronic obstructive pulmonary disease, unspecified Glaucoma History of tobacco abuse Hyperlipidemia Obesity Obstructive sleep apnea Obstructive sleep apnea (adult) (pediatric) Osteoarthritis Osteoarthritis of left hip Surgical History Surgical History History of throat surgery 2011 polyp History of tonsillectomy History of total hip arthroplasty 2016 mcarthy Total knee replacement status 2018 roger Family History Family History Sibling Family history of multiple sclerosis, Onset Age: 49 Patient's sister is Father Hypertension Family history of transient ischemic attacks, Onset Age: 72 Acute myocardial infarction, Onset Age: 72 Patient's father is Mother Family history of lung cancer, Onset Age: 72 Patient's mother is Social History Social History Social History: the patient stated that she stopped smoking in 2014. She lives with her who has Parkinson's. She has One daughter. The daughter and are both poa. She is retired from customer service. She smokes marijuana at night to help her sleep and help with the pain. Occasional glass of wine. Code status full code Smoking status: Former smoker Additional smoking assessment comments: pt confirms to smoking marijuana daily Alcohol intake: current Substance use type: marijuana Spiritual care concerns: No Course Vital Signs Vital signs: Vital Signs Temperature 98.5 F 11/18/22 04:00 Pulse Rate 88 11/18/22 04:00 Respiratory Rate 16 0
[2022-11-18] MEDS: diazePAM INJ (*CRX) 10 MG/2 ML SYRINGE 5 MG IV PUSH (06:07)
[2022-11-18 06:29] VITALS: BP 151/67; PULSE 82; RESP 20; TEMP 35.8; O2SAT 98
--- NOTE | 2022-11-18 06:39 | ADMGEN ---
This patient, Emma Cintron, was admitted to [facility] Surg Room 323-01. Patient/family oriented to hospital policies and general routines including ID bracelet, bed and alarms, visiting hours, pain management, procedures, bathroom and other care routines, personal items, smoking policy, room service/diet, and visiting hours. Information on how to activate the Rapid Response Team has been discussed. Patient/Family are encouraged to report perceived risks to care and to ask questions if they do not understand what they are told or what they should do.
[2022-11-18 07:11] VITALS: BMI 38.9
[2022-11-18] MEDS: traMADol HCL (*CRX) 50 MG TABLET PO (09:28)
[2022-11-18] MEDS: CYCLOBENZAPRINE HCL 10 MG TABLET PO (09:28)
--- NOTE | 2022-11-18 10:08 | PM.IMHP ---
H&P: HPI History of Present Illness Date/Time: 11/18/22 10:08 Chief Complaint: Left leg pain in spasms so severe she cannot walk Narrative: This is a 77-year-old female patient who presented to the emergency department overnight via EMS with complaints of left-sided leg pain so severe that she could not turn over in bed or ambulate. Patient reports pain comes and goes and spasms and has been worsening over the past several months but acutely worsened without any precipitating factors last night while she was lying in bed. Patient denies any saddle paresthesias, bowel or bladder incontinence or retention. Patient reports that the pain seems to start in the buttock and radiates down the left leg to just above the knee but with certain spasms can shoot all the way down to the foot. Patient reports that she had a left hip replacement in April of 2021 and went finishing physical therapy in June 2021 she fell shattering the bone requiring additional surgery at [facility]. Since that time patient has had pain in the leg with ambulation but she was doing well in June of 2022 after extensive rehabilitation. At that time a provider told her she should be using a cane and within 3 days of using a cane she began to significant pain in the left upper leg. That pain has continued to exacerbate since then and now requires patient to use a walker on a daily basis. In the emergency department patient was treated with pain medication and muscle relaxers and had some temporary improvement but pain. Plan was to discharge with prednisone gabapentin but patient states that she is already having to use a walker and would be at home alone and was afraid she might fall and harm herself so she was placed in observation status. Patient notes that she was supposed to receive an MRI back within the next week ordered by her primary care provider. Review of Systems Review of Systems: All systems reviewed & are unremarkable except as noted in HPI and below [facility] Past Medical History Medical History Acute and chronic respiratory failure Allergic rhinitis Anxiety CHF (congestive heart failure), NYHA class I Chronic obstructive pulmonary disease, unspecified Glaucoma History of tobacco abuse Hyperlipidemia Obesity Obstructive sleep apnea Obstructive sleep apnea (adult) (pediatric) Osteoarthritis Osteoarthritis of left hip Surgical History Surgical History History of throat surgery 2012 polyp History of tonsillectomy History of total hip arthroplasty 2016 mcart Total knee replacement status 2018 roger Family History Family History Sibling Family history of multiple sclerosis, Onset Age: 49 Patient's sister is Father Hypertension Family history of transient ischemic attacks, Onset Age: 72 Acute myocardial infarction, Onset Age: 72 Patient's father is Mother Family history of lung cancer, Onset Age: 72 Patient's mother is Social History Social History Social History: the patient stated that she stopped smoking in 2014. She lives with her who has Parkinson's. She has One daughter. The daughter and are both poa. She is retired from customer service. She smokes marijuana at night to help her sleep and help with the pain. Occasional glass of wine. Code status full code Smoking status: Never smoker Additional smoking assessment comments: pt confirms to smoking marijuana daily Alcohol intake: never Substance use: never Substance use type: marijuana Lack of Transportation: No Lack of Food: Never True Current Housing: Decline to Answer Concerned About Future Housing: No Difficulty Paying Gas/Electric Bill
[2022-11-18] MEDS: CYANOCOBALAMIN 500 MCG TABLET PO (11:11)
[2022-11-18] MEDS: MULTIVITAMINS THERAPEUTIC TAB (*BKC) 1 TABLET PO (11:11)
[2022-11-18] MEDS: OMEGA 3 POLYUNSAT FATTY ACIDS 1 GM CAP PO (11:11)
[2022-11-18] MEDS: lisinopriL 20 MG TABLET PO (11:11)
[2022-11-18] MEDS: CHOLECALCIFEROL 1,000 UNITS TABLET 1000 UNITS PO (11:11)
[2022-11-18] MEDS: TIZANIDINE HCL 2 MG TABLET PO (11:11)
[2022-11-18] MEDS: buPROPion HCL XL (24 HR) 150 MG TABCR 300 MG PO (11:11)
[2022-11-18] MEDS: DULoxetine HCL 60 MG CAPSULE.DR PO (11:12)
[2022-11-18] MEDS: ASCORBIC ACID 500 MG TABLET PO (11:12)
[2022-11-18] MEDS: MAGNESIUM 13.5 MG TABLET (250 MG MAG GLUCONATE) PO (11:12)
[2022-11-18] MEDS: FUROSEMIDE 40 MG TABLET PO (11:12)
[2022-11-18] MEDS: ATORVASTATIN 20 MG TABLET PO (11:12)
[2022-11-18] MEDS: POTASSIUM CHLORIDE 10 MEQ ER TABLET 20 MEQ PO (11:12)
[2022-11-18] MEDS: FLUTICASONE PROPIONATE 0.05% NA SPR 16 GM BTL (*BKC) 1 SPRAY NASAL (11:13)
[2022-11-18] MEDS: PANTOPRAZOLE 40 MG TABLET PO (11:13)
[2022-11-18] MEDS: FOLIC ACID 1 MG TABLET PO (11:13)
[2022-11-18] MEDS: ASPIRIN 81 MG ENTERIC TABLET PO (11:14)
[2022-11-18] MEDS: BRIMONIDINE TARTRATE 0.15% 5 ML OPHTH SOLN 1 DROP EACH EYE (11:14)
[2022-11-18] MEDS: IBUPROFEN 600 MG TABLET PO (11:20)
[2022-11-18] MEDS: DEXAMETHASONE SOD PHOS INJ 4 MG/ML VIAL IV PUSH ×2 (12:43→17:32)
--- NOTE | 2022-11-18 13:07 | PCPTNOTE ---
PT orders received. Awaiting further medical diagnostics to determine plan of care. Will hold PT eval until later time/date when medical plan of care is determined.
--- NOTE | 2022-11-18 13:27 | PCOTNOTE ---
Addendum entered by Darlene Mishra, OT 11/18/22 14:14: Spoke with Hospitalist, Dharmesh Yates, who anticipates pt. receiving MRI for further diagnostics prior to working with therapy services. Original Note: Awaiting further medical diagnostics to determine plan of care. Due to concerns for safety and potential limitations for safe mobilization, evaluation will be completed until later time/date when medical plan of care is determined
[2022-11-18 14:00] VITALS: BP 116/69; PULSE 99; RESP 14; TEMP 36.7; O2SAT 97
[2022-11-18 14:41] LABS: Hemoglobin 12.7 g/dL (12.0-15.0); Mean Corpuscular Hemoglobin 26.3 pg (26-34); Mean Corpuscular Volume 84.9 fl (80-100); Mean Platelet Volume 8.3 fl (7.4-10.4); Platelet Count Result 519 k/mm3 (150-375); Red Blood Count 4.83 M/mm3 (4.2-5.4); Red Cell Distribution Width 16.2 % (11.5-14.5)
[2022-11-18 14:54] LABS: Alanine Aminotransferase 21 U/L (6-35); Albumin Level 4.7 g/dL (3.5-5.1); Alkaline Phosphatase 96 U/L (38-126); Anion Gap 12 mmol/L (8-16); Aspartate Amino Transferase 27 U/L (14-36); Bilirubin,Total 0.5 mg/dL (0.2-1.3); Blood Urea Nitrogen 43 mg/dL (7-17); Calcium 10.1 mg/dL (8.4-10.2); Carbon Dioxide 25 mmol/L (22-30); Chloride 100 mmol/L (98-107); Estimated CRCL calculation 32 ml/min; Estimated Glomerular Filt Rate 31; Glucose 148 mg/dL (65-110); Magnesium 2.2 mg/dL (1.6-2.3); Potassium 5.4 mmol/L (3.4-5.0); Sodium 137 mmol/L (137-145)
--- NOTE | 2022-11-18 15:02 | ECG_ITS ---
Measurements Intervals [place] Rate: 90 P: 99 MT: 234 QRS: 35 QRSD: 110 T: 64 QT: 342 QTc: 419 Interpretive Statements SINUS RHYTHM WITH FIRST DEGREE AV BLOCK COMPARED TO ECG 05/12/2021 10:07:27 SINUS RHYTHM NOW PRESENT FIRST DEGREE AV BLOCK NOW PRESENT Electronically Signed On 11-19-2022 8:50:29 CDT by Abhay Lacy M.D.
[2022-11-18 15:29] LABS: Creatine Kinase 46 U/L (30-135)
[2022-11-18] MEDS: SODIUM CHLORIDE 0.9% IV 1,000 ML 999 ML IV CONT (15:52)
[2022-11-18] MEDS: MORPHINE SULFATE (*CRX) 4 MG/ML INJ IV PUSH (15:53)
[2022-11-18] MEDS: SODIUM CHLORIDE 0.9% IV 1,000 ML 100 ML IV CONT (15:53)
[2022-11-18 19:15] LABS: Anion Gap 5 mmol/L (8-16); Blood Urea Nitrogen 42 mg/dL (7-17); Calcium 9.4 mg/dL (8.4-10.2); Carbon Dioxide 25 mmol/L (22-30); Chloride 103 mmol/L (98-107); Estimated CRCL calculation 34 ml/min; Estimated Glomerular Filt Rate 34; Glucose 159 mg/dL (65-110); Sodium 133 mmol/L (137-145)
[2022-11-18 20:00] VITALS: BP 137/70; PULSE 103; PULSE 99; RESP 14; RESP 18; TEMP 36.3; O2SAT 94; O2SAT 97
[2022-11-18 22:07] VITALS: O2SAT 97
[2022-11-19] MEDS: DEXAMETHASONE SOD PHOS INJ 4 MG/ML VIAL IV PUSH ×4 (01:01→16:54)
[2022-11-19] MEDS: BRIMONIDINE TARTRATE 0.15% 5 ML OPHTH SOLN 1 DROP EACH EYE ×3 (01:01→16:54)
[2022-11-19] MEDS: TIZANIDINE HCL 2 MG TABLET PO ×2 (02:46→12:43)
[2022-11-19] MEDS: MORPHINE SULFATE (*CRX) 4 MG/ML INJ IV PUSH (03:53)
[2022-11-19] MEDS: SODIUM CHLORIDE 0.9% IV 1,000 ML 100 ML IV CONT (04:11)
[2022-11-19 04:12] VITALS: BP 132/90; PULSE 95; RESP 18; TEMP 36.6; O2SAT 90
[2022-11-19 06:25] LABS: Hematocrit 36.3 % (37.0-47.0); Mean Corpuscular HGB Conc 30.3 g/dl (32-36); Mean Corpuscular Hemoglobin 25.8 pg (26-34); Mean Platelet Volume 8.7 fl (7.4-10.4); Platelet Count Result 485 k/mm3 (150-375); Red Blood Count 4.27 M/mm3 (4.2-5.4); Red Cell Distribution Width 16.2 % (11.5-14.5); White Blood Count 8.3 K/mm3 (4.5-10.0)
[2022-11-19 06:37] LABS: Sodium 136 mmol/L (137-145)
[2022-11-19 06:46] LABS: Anion Gap 6 mmol/L (8-16); Blood Urea Nitrogen 38 mg/dL (7-17); Calcium 9.1 mg/dL (8.4-10.2); Carbon Dioxide 26 mmol/L (22-30); Chloride 104 mmol/L (98-107); Estimated CRCL calculation 46 ml/min; Estimated Glomerular Filt Rate 48; Glucose 186 mg/dL (65-110); Potassium 4.8 mmol/L (3.4-5.0)
[2022-11-19 08:02] VITALS: O2SAT 92
[2022-11-19] MEDS: buPROPion HCL XL (24 HR) 150 MG TABCR 300 MG PO (09:02)
[2022-11-19] MEDS: ATORVASTATIN 20 MG TABLET PO (09:02)
[2022-11-19] MEDS: ASCORBIC ACID 500 MG TABLET PO (09:02)
[2022-11-19] MEDS: FUROSEMIDE 40 MG TABLET PO (09:03)
[2022-11-19] MEDS: ASPIRIN 81 MG ENTERIC TABLET PO (09:03)
[2022-11-19] MEDS: DULoxetine HCL 60 MG CAPSULE.DR PO (09:03)
[2022-11-19] MEDS: OMEGA 3 POLYUNSAT FATTY ACIDS 1 GM CAP PO (09:03)
[2022-11-19] MEDS: CHOLECALCIFEROL 1,000 UNITS TABLET 1000 UNITS PO (09:03)
[2022-11-19] MEDS: CYCLOBENZAPRINE HCL 10 MG TABLET PO (09:04)
[2022-11-19] MEDS: MULTIVITAMINS THERAPEUTIC TAB (*BKC) 1 TABLET PO (09:04)
[2022-11-19] MEDS: PANTOPRAZOLE 40 MG TABLET PO (09:04)
[2022-11-19] MEDS: FOLIC ACID 1 MG TABLET PO (09:05)
[2022-11-19] MEDS: CYANOCOBALAMIN 500 MCG TABLET PO (09:05)
[2022-11-19] MEDS: MAGNESIUM 13.5 MG TABLET (250 MG MAG GLUCONATE) PO (09:05)
[2022-11-19] MEDS: ACETAMINOPHEN 325 MG TABLET 650 MG PO (09:12)
[2022-11-19] MEDS: traMADol HCL (*CRX) 50 MG TABLET PO (09:12)
--- NOTE | 2022-11-19 11:23 | PM.IMHP ---
H&P: HPI History of Present Illness Date/Time: 11/19/22 11:23 Chief Complaint: The patient is a 77-year-old female who presents with left buttock thigh and hip pain. Patient initially had a left total hip arthroplasty done by Dr. Palafox April of 2021. Follow-up for this soon afterwards showed no issues. The patient however tripped and fell suffering a periprosthetic left hip fracture which required open duction internal fixation and revision of the left total hip arthroplasty in June of 2021. This was done at [facility]. Patient states she went through a long course of rehab was doing okay and followed up in June of 2022 for recheck and was doing well at that time. Soon afterwards she started developed some left thigh pain. This is progressively got worse. She went through a course of anti-inflammatory medication physical therapy and using a walker for support however the last week or so her pain has gotten so bad that it was about an 8 to a 9 on a scale 1-10 she was unable to get up and ambulate. She was having severe pain from the buttock into the thigh all the way to the knee. The patient was admitted for to [facility] for workup and pain control. An MRI scan of the back was performed that shows what appears to be critical central spinal stenosis at L2-3 with multilevel degenerative disc disease and moderate neural foraminal stenosis at multiple levels as well. No acute fracture leisure masses seen. A left hip x-ray shows extensive heterotopic bone proximally which may be causing mechanical issues however the implant itself and the hardware appears to be intact. No acute fracture lesion or mass is seen here. Does not appear as though the implant has loosened her failed. Patient denies any fevers chills night sweats no constitutional symptoms no new trauma or injury to the hip. She has had no recent infections or other illnesses. Sitting at rest she really does not have much pain when she tries to get up and move or bear weight this is when most of her pain occurs. She states she has some slight back pain but most the pain is localized to the left thigh. Orthopedics has been consulted for evaluation. She denies any new weakness no numbness or tingling or bowel or bladder symptoms today. She has always had some limited motion of the left hip since her periprosthetic fracture and subsequent surgical intervention for this. This was about 18 months ago. Review of Systems Review of Systems: Ten point review of systems otherwise negative [facility] Past Medical History Medical History Acute and chronic respiratory failure Allergic rhinitis Anxiety CHF (congestive heart failure), NYHA class I Chronic obstructive pulmonary disease, unspecified Glaucoma History of tobacco abuse Hyperlipidemia Obesity Obstructive sleep apnea Obstructive sleep apnea (adult) (pediatric) Osteoarthritis Osteoarthritis of left hip Surgical History Surgical History History of throat surgery 2012 polyp History of tonsillectomy History of total hip arthroplasty 2016 mcarthy Total knee replacement status 2018 roger Family History Family History Sibling Family history of multiple sclerosis, Onset Age: 49 Patient's sister is Father Hypertension Family history of transient ischemic attacks, Onset Age: 72 Acute myocardial infarction, Onset Age: 72 Patient's father is Mother Family history of lung cancer, Onset Age: 72 Patient's mother is Social History Social History Social History: the patient stated that she stopped smoking in 2014. She lives with her who has Parkinson's. She has One daughter. The daughter and are both poa. She is
[2022-11-19 11:59] LABS: CRP 3.3 mg/dL (<1.0)
[2022-11-19 12:28] LABS: Erythrocyte Sedimentation Rate 38 mm/hr (0-20)
--- NOTE | 2022-11-19 13:32 | PCOTNOTE ---
Pt currently awaiting CT scan on hip and neuro consult for MRI findings. Will continue to follow and see when appropriate.
[2022-11-19 14:00] VITALS: BP 129/66; PULSE 88; RESP 22; TEMP 36.7; O2SAT 93
--- NOTE | 2022-11-19 15:15 | PM.IMPN ---
Subjective Date/time seen: 11/19/22 15:15 Objective Data Vital Signs Vital Signs: Vital Signs - 24 hr 11/18/22 20:00 11/18/22 20:00 11/18/22 22:07 Temperature 36.3 C L Pulse Rate 99 103 H Respiratory Rate 14 18 Blood Pressure 137/70 Pulse Oximetry 97 94 97 Oxygen Delivery Room Air Room Air Fraction of Inspired Oxygen 11/19/22 05:06 11/19/22 04:12 11/19/22 08:02 Temperature 36.6 C 36.6 C Pulse Rate 95 95 Respiratory Rate 18 18 Blood Pressure 132/90 132/90 Pulse Oximetry 90 90 92 Oxygen Delivery Room Air Fraction of Inspired Oxygen 21 11/19/22 09:00 11/19/22 14:00 Temperature 36.7 C Pulse Rate 88 Respiratory Rate 22 H Blood Pressure 129/66 Pulse Oximetry 93 Oxygen Delivery Room Air Fraction of Inspired Oxygen Intake/Output Intake/Output: Intake & Output 11/16/22 11/17/22 11/18/22 11/19/22 23:59 23:59 23:59 23:59 Intake Total 1576 1666 Output Total 1825 1550 Balance -249 116 Meds/Results Medications: Active Medications Generic Name Dose Route Start Last Admin Trade Name Freq PRN Reason Stop Dose Admin Acetaminophen 650 mg 11/18/22 12:12 11/19/22 09:12 Acetaminophen 325 Mg Tablet PO 650 mg Q4H PRN Administration Mild Pain (1-3) or Fever Albuterol 2 puff 11/18/22 08:59 Albuterol Sulfate (*Sp) Aerosol 1 Puff INHALATION Q4-6H PRN shortness of breath or wheezing Ascorbic Acid 500 mg 11/18/22 09:00 11/19/22 09:02 Ascorbic Acid 500 Mg Tablet PO 12/18/22 08:59 500 mg DAILY BRANNON Administration Aspirin 81 mg 11/18/22 09:00 11/19/22 09:03 Aspirin 81 Mg Enteric Tablet PO 81 mg DAILY BRANNON Administration Atorvastatin Calcium 20 mg 11/18/22 09:00 11/19/22 09:02 Atorvastatin 20 Mg Tablet PO 20 mg DAILY BRANNON Administration Brimonidine Tartrate 1 drop 11/18/22 09:00 11/19/22 09:01 Brimonidine Tartrate 0.15% 5 Ml Ophth Soln EACH EYE 1 drop Q8H BRANNON Administration Bupropion HCl 300 mg 11/18/22 09:00 11/19/22 09:02 Bupropion Hcl Xl (24 Hr) 150 Mg Tabcr PO 300 mg QAM BRANNON Administration Cyanocobalamin 500 mcg 11/18/22 09:00 11/19/22 09:05 Cyanocobalamin 500 Mcg Tablet PO 500 mcg DAILY BRANNON Administration Cyclobenzaprine HCl 10 mg 11/18/22 08:59 11/19/22 09:04 Cyclobenzaprine Hcl 10 Mg Tablet PO 10 mg TID PRN Administration muscle spasm Dexamethasone Sodium Phosphate 4 mg 11/18/22 12:15 11/19/22 12:40 Dexamethasone Sod Phos Inj 4 Mg/Ml Vial IV PUSH 4 mg Q6HR BRANNON Administration Diazepam 5 mg 11/18/22 12:11 Diazepam (*Crx) 5 Mg Tablet PO TID PRN Spasms Duloxetine HCl 60 mg 11/18/22 09:00 11/19/22 09:03 Duloxetine Hcl 60 Mg Capsule.Dr PO 60 mg DAILY BRANNON Administration Fish Oil 1 gm 11/18/22 09:00 11/19/22 09:03 Chama 3 Polyunsat Fatty Acids 1 Gm Cap PO 1 gm DAILY BRANNON Administration Fluticasone Propionate 1 spray 11/18/22 09:00 11/19/22 09:02 Fluticasone Propionate 0.05% Na Spr 16 Gm Btl (*Bkc) NASAL Not Given DAILY BRANNON Folic Acid 1 mg 11/18/22 09:00 11/19/22 09:05 Folic Acid 1 Mg Tablet PO 1 mg DAILY BRANNON Administration Furosemide 40 mg 11/18/22 09:00 11/19/22 09:03 Furosemide 40 Mg Tablet PO 40 mg QAM BRANNON Administration Lorazepam 0.5 mg 11/18/22 08:59 Lorazepam (*Crx) 0.5 Mg Tablet PO TID PRN Anxiety Magnesium Gluconate 13.5 mg 11/18/22 09:00 11/19/22 09:05 Magnesium 13.5 Mg Tablet (250 Mg Mag Gluconate) PO 12/18/22 08:59 13.5 mg DAILY BRANNON Administration Morphine Sulfate 4 mg 11/18/22 12:12 11/19/22 03:53 Morphine Sulfate (*Crx) 4 Mg/Ml Inj IV PUSH 4 mg Q4H PRN Administration Pain Rated 7-10 Multivitamins Therapeutic 1 tablet 11/18/22 09:00 11/19/22 09:04 Multivitamins Therapeutic Tab (*Bkc) PO 1 tablet DAILY BRANNON Administration Pantoprazole Sodium 40 mg 11/18/22 09:00 11/19/22 09:04 Pantoprazole 40 Mg Tablet PO
--- NOTE | 2022-11-19 15:54 | PM.DS ---
DS: Admitting Diagnosis Discharge Date 11/19/2022 Admitting Diagnosis Lumbar radiculopathy chronic pain of left lower extremity unable to ambulate obstructive sleep apnea obesity DS: Discharge Diagnosis Discharge Diagnosis (1) Lumbar radiculopathy: Code(s): M54.16 - Radiculopathy, lumbar region Status: Acute Assessment and Plan: Follow with Dr. Thomas in clinic (2) Degenerative disc disease, lumbar: Code(s): M51.36 - Other intervertebral disc degeneration, lumbar region Status: Acute Assessment and Plan: Follow with Dr. Thomas in clinic (3) Acute kidney injury: Code(s): N17.9 - Acute kidney failure, unspecified Status: Acute Assessment and Plan: Cr 1.8 in outpatient, 1.6 here, 1.1 after IV fluids. Stop NSAIDs, hold lisinopril/potassium/magnesium until 11/29. Repeat BMP in 1 week with results to PCP (4) Unable to ambulate: Code(s): R26.2 - Difficulty in walking, not elsewhere classified Status: Acute Assessment and Plan: PT/OT on discharge (5) Acute UTI: Code(s): N39.0 - Urinary tract infection, site not specified Status: Acute Assessment and Plan: Outpatient results growing gram negative bacilli. Start cefdinir bid for 7 days, RX sent (6) Hyperkalemia: Code(s): E87.5 - Hyperkalemia Status: Acute Assessment and Plan: Hold potassium and magnesium until 11/29, repeat BMP outpatient in 1 week, results to Primary care provider (7) Muscle spasm: Code(s): M62.838 - Other muscle spasm Status: Acute Assessment and Plan: Tizanidine, Valium Rx (8) Chronic pain of left lower extremity: Code(s): M79.605 - Pain in left leg; G89.29 - Other chronic pain Status: Acute Assessment and Plan: Stop NSAIDs, use Tylenol, tramadol and muscle relaxers (9) CHF (congestive heart failure), NYHA class I: Code(s): I50.9 - Heart failure, unspecified Status: Chronic Assessment and Plan: continue Lasix but hold other nephrotoxic medications until repeat BMP. (10) Obstructive sleep apnea (adult) (pediatric): Code(s): G47.33 - Obstructive sleep apnea (adult) (pediatric) Status: Chronic Assessment and Plan: home cpap DS: Summary Hospital Course Reason for hospitalization: patient was admitted for pain control and PT OT after having difficulty ambulating due to severe worsening left gluteal/leg pain. Hospital Course: Patient was admitted due to severe left leg pain and difficulty ambulating. Workup included MRI lumbar spine which yields L2-L3 central canal stenosis and multilevel foraminal narrowing along with degenerative disc disease on all levels. Spoke with Neurosurgery Dr. Thomas and follow-up in the clinic is recommended as well as initiating physical therapy and occupational therapy in the outpatient setting before Neurosurgery appointment. Additionally x-ray the hip shows heterotrophic bone growth that could be contributing to patient's pain. Orthopedics was consulted and ordered CT scan to assess for occult fracture and labs to check for the possibility infection in the hip hardware. Incidentally, it was noted the patient had an SANTANA upon admission that improved with IV fluids. She also had hyperkalemia. RN notified me that patient had labs in the clinic setting that included a urine culture growing Gram-negative bacilli and patient is not yet on antibiotics. Additionally, outpatient labs showed potassium of 5.3 and a creatinine 1.87. Renal ultrasound has been completed and shows a simple renal cyst but no evidence hydronephrosis. We will plan on starting antibiotics for patient's pre-existing urinary tract infection. She is allergic to nitrofurantoin and and penicillins. We will start cefdinir with first dose in the hospital to assess for adverse reactions. Patient reports spasm like pain in left gluteal region radiating down to the knee casandra
--- NOTE | 2022-11-19 16:29 | PCPTNOTE ---
at 1500- pt was out of room for CT scan of hip. Eval not performed.
[2022-11-19] MEDS: CEFDINIR 300 MG CAPSULE PO (16:54)
== END 2022-11-19 18:45 | disposition home or self-care (01) ==
LOC: ANHED 04:37 → ANH3MEDSUR 09:03
PROVIDERS: Nurse Practitioner; Physician Assistant Surgical; Admitting Provider Internal Medicine; Emergency Provider Emergency Medicine; PCP Internal Medicine; Visit Provider Internal Medicine
DX: M51.16 Intervertebral disc disorders with radiculopathy, lumbar region (principal); N17.9 Acute kidney failure, unspecified; E87.5 Hyperkalemia; N39.0 Urinary tract infection, site not specified; M62.838 Other muscle spasm; R26.2 Difficulty in walking, not elsewhere classified; J96.10 Chronic respiratory failure, unspecified whether with hypoxia or hypercapnia; I50.9 Heart failure, unspecified; J44.9 Chronic obstructive pulmonary disease, unspecified; E78.5 Hyperlipidemia, unspecified; G47.33 Obstructive sleep apnea (adult) (pediatric); E66.9 Obesity, unspecified; Z68.38 Body mass index [BMI] 38.0-38.9, adult; F12.90 Cannabis use, unspecified, uncomplicated; Z79.82 Long term (current) use of aspirin; Z79.51 Long term (current) use of inhaled steroids; Z96.642 Presence of left artificial hip joint
CPT/HCPCS: 36415; 72148; 73502; 73700; 76775; 80048; 80053; 82550; 83735; 85027; 85652; 86140; 93005; 96361; 96374; 96375; 96376; 99285; A9270; G0378; J1100; J2270; J3360; J7030; J7512

== ENCOUNTER 2023-10-19 14:26 | Outpatient (CLI) | payer OTHER, SELFPAY ==
--- NOTE | ~2023-10-19 | CT_ITS ---
EXAMINATION: CT lung screening DATE: 10/19/2023 14:42 INDICATION: Z87.891 - Personal history of nicotine dependence TECHNIQUE: Computed tomography (CT) of the chest was performed without intravenous contrast. Addition al 3D reconstructions utilizing coronal maximum intensity projection (MIP) were performed. Automated exposure control and iterative reconstruction technique were employed. The dose-length product was 21 2.27 mGy-cm. COMPARISON: 06/21/2022 FINDINGS: There are a few small calcified nodules in the the lingula and right middle and and left lower lobes along with calcified right hilar and mediastinal lymph nodes consistent with old granulomatous diseas e. Mild discoid atelectasis in the right lower lobe. No other suspicious pulmonary nodules, pneumonia , pulmonary edema or pleural effusion. Heart size is normal. No pericardial effusion. Atherosclerotic coronary artery calcification and aortic valve calcification. Thoracic aorta is normal in caliber. N o pathologically enlarged thoracic lymphadenopathy. A few hepatic and splenic calcifications consiste nt with old granulomatous disease. Moderate to severe cervical and thoracic spondylosis. IMPRESSION: 1. Lung-RADS category 1: Negative. Continue annual screening with noncontrast low-dose chest CT in 12 months. Reviewed, dictated and finalized at location A. IMPRESSION: 1. Lung-RADS category 1: Negative. Continue annual screening with noncontrast l ow-dose chest CT in 12 months.
== END 2023-10-19 14:27 | disposition home or self-care (01) ==
LOC: ANHIMG 14:28
PROVIDERS: PCP Internal Medicine; Visit Provider Nurse Practitioner Family
DX: Z12.2 Encounter for screening for malignant neoplasm of respiratory organs (principal); Z87.891 Personal history of nicotine dependence
CPT/HCPCS: 71271

== ENCOUNTER 2024-01-26 12:48 | Outpatient (CLI) | payer OTHER, SELFPAY ==
--- NOTE | ~2024-01-26 | US_ITS ---
EXAMINATION: US soft tissue LE LT DATE: 01/26/2024 13:39 INDICATION: Painful left thigh mass TECHNIQUE: Multiple grayscale and Doppler ultrasound images of the region of concern at the lateral l eft thigh were obtained. COMPARISON: CT left femur dated 11/19/2022 FINDINGS: There are couple hypoechoic likely complex fluid collections at the region of concern. This includes a deeper collection which extends near the insertion of the underlying femur and measures 7.7 x 2.7 x 3.2 cm and which communicates with a slightly smaller collection along the superficial muscular fasc ia which measures 7.5 x 2.6 x 1.8 cm. There is additional hypoechoic tract extending across the overl erica subcutaneous fat potentially representing a surgical scar related to prior internal fixation of the femur which is evident on prior CT. There is some surrounding subcutaneous edema. IMPRESSION: 1. A couple complex fluid collections in the deep and superficial aspect of the muscular compartment of the lateral left thigh. Differential includes abscess or hematoma in the appropriate clinical sett ing or potentially an adventitial bursa related to underlying chronic fracture with internal fixation . Would consider further evaluation with pre and postcontrast MRI and either radiographs or CT. Reviewed, dictated and finalized at location A. IMPRESSION: 1. A couple complex fluid collections in the deep and superficial aspect of the muscular compartment of the lateral left thigh. Differential includes abscess or hematoma in the appropriate clinical setting or potentially an adventitial b ursa related to underlying chronic fracture with internal fixation. Would consi abby further evaluation with pre and postcontrast MRI and either radiographs or CT.
== END 2024-01-26 12:49 | disposition home or self-care (01) ==
LOC: ANHIMG 12:50
PROVIDERS: PCP Internal Medicine; Visit Provider Registered Nurse
DX: R22.42 Localized swelling, mass and lump, left lower limb (principal)
CPT/HCPCS: 76882

== ENCOUNTER 2024-01-27 13:09 | Outpatient (CLI) | payer OTHER, SELFPAY ==
--- NOTE | ~2024-01-27 | XR_ITS ---
EXAMINATION: XR femur LT min 2V DATE: 01/27/2024 13:53 INDICATION: Left thigh mass TECHNIQUE: Overlapping proximal and distal, AP and lateral views of the left femur were obtained. COMPARISON: Radiograph dated 11/18/[address] dated 11/19/2022 FINDINGS: Again seen is a likely revision left total hip arthroplasty with longstem femoral component and cercl age wires along the subtrochanteric proximal femoral diaphysis. There is deformity of the proximal le ft femur with prominent calcification surrounding the intratrochanteric region of the femur with sugg estion of an old fracture deformity as well as unchanged lucency surrounding the proximal portion of the femoral stem which appears primarily to involve separation of the bone resulting from the chronic fracture as opposed to osteophytosis related to infection or particle disease. No new osteolysis or periosteal reaction identified. There is also a cemented left total knee arthroplasty with patellar r esurfacing which appears well seated in near-anatomic alignment with no periprosthetic lucency. No ac mary's igloo fracture. No left knee joint effusion. IMPRESSION: 1. Stable appearance of a likely revision left total hip arthroplasty with cerclage wires and old hea led periprosthetic fracture at the intratrochanteric region. No acute osseous abnormality. 2. Expected appearance of a left total knee arthroplasty. Reviewed, dictated and finalized at location A. IMPRESSION: 1. Stable appearance of a likely revision left total hip arthroplasty with cerc salas wires and old healed periprosthetic fracture at the intratrochanteric celestino on. No acute osseous abnormality. 2. Expected appearance of a left total knee arthroplasty.
== END 2024-01-27 13:10 | disposition home or self-care (01) ==
PROVIDERS: PCP Internal Medicine; Visit Provider Registered Nurse
DX: R22.42 Localized swelling, mass and lump, left lower limb (principal)
CPT/HCPCS: 73552

== ENCOUNTER 2024-02-06 11:37 | Outpatient (CLI) | payer OTHER, SELFPAY ==
--- NOTE | ~2024-02-06 | MR_ITS ---
EXAMINATION: MR femur LT wo/w con DATE: 02/06/2024 12:42 INDICATION: Left thigh mass. TECHNIQUE: Magnetic resonance imaging (MRI) of the left femur was performed without and with 20 mL Mu ltiHance intravenous contrast. COMPARISON: Left femur radiographs 01/27/2024, CT 11/19/2022 FINDINGS: There is a total left hip arthroplasty with associated artifact. There is a total left knee arthroplasty with associated artifact. Again seen is prominent heterotopic ossification around proxi mal left femur. There is rim-enhancing fluid in this area measuring 2.7 x 1.9 x 9.4 cm. In the area o f the distal aspect of the femoral stem, there is fluid extending from the femur to the lateral skin. There is a skin marker in this area. The tract measures 6.7 x 1.4 x 2.5 cm. There is scarring from a lateral thigh incision. IMPRESSION: 1. Total left hip arthroplasty with long femoral stem. Fluid collections around the proximal and mid left femur with extension of a fluid collection to the lateral skin at the mid femur suspicious for i nfection with osteomyelitis and abscesses with sinus tract. CT of left femur with contrast is recomme nded. Reviewed, dictated and finalized at location B. IMPRESSION: 1. Total left hip arthroplasty with long femoral stem. Fluid collections around the proximal and mid left femur with extension of a fluid collection to the la teral skin at the mid femur suspicious for infection with osteomyelitis and abs cesses with sinus tract. CT of left femur with contrast is recommended.
== END 2024-02-06 11:38 | disposition home or self-care (01) ==
LOC: MICIMG 11:39
PROVIDERS: PCP Internal Medicine; Visit Provider Registered Nurse
DX: R22.42 Localized swelling, mass and lump, left lower limb (principal)
CPT/HCPCS: 73720; A9577

== ENCOUNTER 2024-05-08 14:30 | Outpatient (CLI) | payer OTHER, SELFPAY ==
--- NOTE | ~2024-05-08 | XR_ITS ---
XR chest 2V 05/08/2024 14:55 Indication: Wheezing Procedure: 2 view chest Comparison: 06/22/2021 Findings: Heart size normal. No focal air space disease, pulmonary edema, pleural effusion or suspect ed pneumothorax. The lungs are hyperinflated which is consistent with, but not diagnostic of chronic obstructive pulmonary disease. Impression: 1: No acute cardiopulmonary disease. Reviewed, dictated and finalized at location A. HOLOGY INTERN Impression: 1: No acute cardiopulmonary disease.
== END 2024-05-08 14:31 | disposition home or self-care (01) ==
LOC: MICIMG 14:33
PROVIDERS: PCP Internal Medicine; Visit Provider Internal Medicine
DX: R06.2 Wheezing (principal)
CPT/HCPCS: 71046